=== PATIENT | female | born 1940 | race Caucasian/White ===

== ENCOUNTER 2020-07-07 11:11 | Outpatient (REF) | payer OTHER, SELFPAY ==
--- NOTE | ~2020-07-07 | MM_ITS ---
EXAMINATION: MM SCREENING DIGITAL BREAST TOMOSYNTHESIS, BILATERAL CLINICAL INFORMATION: Screening. Asymptomatic. The lifetime risk of breast cancer based on the Tyrer-Cuzick Model is 3%. COMPARISON: Mammography: 07/05/2019, 06/29/2018, 06/19/2017 TECHNIQUE: Digital breast tomosynthesis is performed in both the craniocaudal and mediolateral oblique views along with computer-aided detection (CAD). Synthesized 2D images are generated from the tomosynthesis. FINDINGS: There are scattered areas of fibroglandular density (ACR BI-RADS breast composition Category b). There are no significant masses, abnormal calcifications, or other abnormalities. Again, there has low axillary node posterior 3:00 left breast and intramammary node posterior upper outer right breast. The skin contours are smooth. No significant changes. MM/MM tomosynthesis screening BI IMPRESSION: No mammographic evidence of malignancy. ASSESSMENT: BI-RADS 2: Benign RECOMMENDATION: Routine annual mammography screening. This patient's information was entered into a reminder system with a target due date for their next mammogram.
== END 2020-07-07 11:12 | disposition home or self-care (01) ==
LOC: HO.MAMMO 11:11
PROVIDERS: PCP Internal Medicine; Visit Provider Internal Medicine
DX: Z12.31 Encounter for screening mammogram for malignant neoplasm of breast (principal)
CPT/HCPCS: 77063; 77067

== ENCOUNTER 2021-01-21 10:00 | Outpatient (REF) | payer OTHER, SELFPAY ==
[2021-01-21 14:00] LABS: MANUAL DIFF FLAG NO
[2021-01-21 14:36] LABS: Alanine Aminotransferase 12 U/L (0-31); Albumin Level 4.2 g/dL (3.5-5.0); Alkaline Phosphatase 76 U/L (39-117); Anion Gap 11 (12-20); Aspartate Amino Transferase 17 U/L (5-31); Bilirubin Total 0.8 mg/dL (0.0-1.0); Blood Urea Nitrogen 14 mg/dL (9-16); Calcium 9.4 mg/dL (8.4-10.2); Carbon Dioxide 24 mmol/L (22-29); Chloride 108 mmol/L (96-108); Cholesterol 237 mg/dL; Estimated Glomerular Filt Rate > 60; Glucose Fasting 89 mg/dL (60-99); HDL Cholesterol 72 mg/dL; LDL Cholesterol Calculated 146 mg/dl; Potassium 4.3 mmol/L (3.3-5.1); Sodium 139 mmol/L (135-145); Total Protein 6.2 g/dL (6.5-8.0); Triglycerides 96 mg/dL
[2021-01-21 14:40] LABS: Basophils Percent Auto 0.3 % (0-2); Eosinophils Absolute Auto 0.3 X10*3/uL (0.0-0.4); Eosinophils Percent Auto 5.1 % (0-4); Hematocrit 40.7 % (37-47); Hemoglobin 13.2 g/dl (12.0-16.0); Imm Gran Abs Auto 0.02 X10*3/uL (0.00-0.03); Imm Gran Pct Auto 0.3 % (0.0-0.4); Lymphocytes Absolute Auto 1.9 X10*3/uL (1.2-4.9); Lymphocytes Percent Auto 29.9 % (20-40); Mean Corpuscular HGB Conc 32.4 g/dl (31.0-35.0); Mean Corpuscular Volume 92.5 fL (80-98); Monocytes Absolute Auto 0.6 X10*3/uL (0.1-1.2); Monocytes Percent Auto 10.2 % (2-11); Neutrophils Absolute Auto 3.4 X10*3/uL (2.0-8.3); Neutrophils Percent Auto 54.2 % (45-73); Platelet Count 211 X10*3/uL (160-400); Red Cell Distribution Width 13.5 % (11.0-16.0); White Blood Count 6.3 X10*3/uL (4.8-10.8)
[2021-01-21 14:50] LABS: Vitamin D 25-OH Total 21.3 ng/mL (>30)
[2021-01-21 18:21] LABS: Thyroid Stimulating Hormone 0.89 uIU/mL (0.32-4.0)
== END 2021-01-21 10:01 | disposition home or self-care (01) ==
LOC: HO.10HDL 10:00
PROVIDERS: Visit Provider Internal Medicine
DX: I10 Essential (primary) hypertension (principal); E78.00 Pure hypercholesterolemia, unspecified; E66.09 Other obesity due to excess calories
CPT/HCPCS: 36415; 80053; 80061; 82306; 84443; 85025

== ENCOUNTER 2021-07-08 10:54 | Outpatient (REF) | payer OTHER, SELFPAY ==
--- NOTE | ~2021-07-08 | MM_ITS ---
EXAMINATION: MM SCREENING DIGITAL BREAST TOMOSYNTHESIS, BILATERAL CLINICAL INFORMATION: Screening. Asymptomatic. The lifetime risk of breast cancer based on the Tyrer-Cuzick Model is 2%. COMPARISON: Mammography: 07/15/2020, 07/05/2019, 06/29/2018 TECHNIQUE: Digital breast tomosynthesis is performed in both the craniocaudal and mediolateral oblique views along with computer-aided detection (CAD). Synthesized 2D images are generated from the tomosynthesis. FINDINGS: The breasts are almost entirely fatty (ACR BI-RADS breast composition Category a). Background stromal and fibroglandular densities are stable. No developing density or interval architectural abnormality. There are no significant masses, abnormal calcifications, or other abnormalities. No significant changes. MM/MM tomosynthesis screening BI IMPRESSION: No mammographic evidence of malignancy. ASSESSMENT: BI-RADS 1: Negative RECOMMENDATION: Routine annual mammography screening. This patient's information was entered into a reminder system with a target due date for their next mammogram.
== END 2021-07-08 10:55 | disposition home or self-care (01) ==
LOC: HO.MAMMO 10:54
PROVIDERS: PCP Internal Medicine; Visit Provider Internal Medicine
DX: Z12.31 Encounter for screening mammogram for malignant neoplasm of breast (principal)
CPT/HCPCS: 77063; 77067

== ENCOUNTER 2021-07-27 14:08 | Outpatient (REF) | payer OTHER, SELFPAY ==
--- NOTE | ~2021-07-27 | MR_ITS ---
EXAMINATION: MRI OF BRAIN WITHOUT CONTRAST. 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 Evaluate for small vessel disease. COMPARISON: No previous studies are available at this time for comparison and there are no prior reports. FINDINGS: Brain Volume: Mild generalized diffuse brain parenchymal volume loss noted. Structural: No malformations. Brain and Meninges: Small scattered patchy and punctate foci of FLAIR/T2 signal hyperintensity are noted within the subcortical and deeper white matter of both cerebral hemispheres, which are nonspecific findings but likely reflect chronic ischemic microangiopathy in a patient of this age. There is a 3 mm focus of susceptibility artifact in the left cerebellar hemisphere with stippled central T2 hyperintensity and a subtle thin rim of T2 hypointensity consistent with a small developmental cavernous venous malformation. No extra-axial fluid collections, space-occupying process, recent or acute hemorrhage or mass effect is identified. DWI sequence demonstrates no restricted diffusion. Specifically, there is no evidence for acute or subacute cerebral ischemia. Ventricles and Subarachnoid Spaces: The ventricular system and subarachnoid spaces are within normal limits without hydrocephalus. There is periventricular leukoaraiosis, which is an age-related phenomenon. Orbital Structures: Bilateral lens extractions are noted. Otherwise, the visualized orbital structures are grossly unremarkable within the limitations of the study. Vascular: Signal voids are noted in the visualized major intracranial vessels. Sinuses and Osseous Structures: Minor mucosal thickening in the ethmoid and maxillary sinuses is noted. Osseous marrow signal intensity appears within normal limits. Hyperostosis frontalis is noted which is an anatomic variant. Discogenic degenerative changes and spondylosis noted at C4-C5 with degenerative endplate changes. MR/MR head/brain wo con IMPRESSION: 1. Chronic ischemic microangiopathy in the white matter of both cerebral hemispheres with no evidence for acute or subacute cerebral ischemia, thalamic infarcts, space-occupying process or mass effect. 2. 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 3. Mild paranasal sinus mucosal inflammatory changes and degenerative changes at C4-C5.
== END 2021-07-27 14:09 | disposition home or self-care (01) ==
LOC: HO.MRI 14:08
PROVIDERS: Visit Provider Psychiatry & Neurology Neurology
DX: Z86.73 Personal history of transient ischemic attack (TIA), and cerebral infarction without residual deficits (principal)
CPT/HCPCS: 70551

== ENCOUNTER 2022-07-11 10:52 | Outpatient (REF) | payer OTHER, SELFPAY ==
--- NOTE | ~2022-07-11 | MM_ITS ---
EXAMINATION: MM SCREENING DIGITAL BREAST TOMOSYNTHESIS, BILATERAL CLINICAL INFORMATION: Screening. Asymptomatic. The lifetime risk of breast cancer based on the Tyrer-Cuzick Model is 2%. COMPARISON: Mammography: 07/08/2021, 07/07/2020, 07/05/2019 TECHNIQUE: Digital breast tomosynthesis is performed in both the craniocaudal and mediolateral oblique views along with computer-aided detection (CAD). Synthesized 2D images are generated from the tomosynthesis. Additional bilateral MLO views are provided. FINDINGS: There are scattered areas of fibroglandular density (ACR BI-RADS breast composition Category b). There are no significant masses, abnormal calcifications, or other abnormalities. No architectural abnormality or developing density or significant change from prior studies. The axilla and skin contours are unremarkable. MM/MM tomosynthesis screening BI IMPRESSION: No mammographic evidence of malignancy. ASSESSMENT: BI-RADS 1: Negative RECOMMENDATION: Routine annual mammography screening. This patient's information was entered into a reminder system with a target due date for their next mammogram.
== END 2022-07-11 10:53 | disposition home or self-care (01) ==
LOC: HO.MAMMO 10:52
PROVIDERS: Visit Provider Internal Medicine
DX: Z12.31 Encounter for screening mammogram for malignant neoplasm of breast (principal)
CPT/HCPCS: 77063; 77067

== ENCOUNTER 2022-12-01 08:01 | Outpatient (REF) | payer OTHER, SELFPAY ==
[2022-12-01 10:49] LABS: MANUAL DIFF FLAG NO
[2022-12-01 10:55] LABS: Basophils Percent Auto 0.5 % (0-2); Eosinophils Absolute Auto 0.3 X10*3/uL (0.0-0.4); Hemoglobin 14.1 g/dl (12.0-16.0); Imm Gran Abs Auto 0.01 X10*3/uL (0.00-0.03); Imm Gran Pct Auto 0.2 % (0.0-0.4); Lymphocytes Absolute Auto 2.1 X10*3/uL (1.2-4.9); Lymphocytes Percent Auto 32.6 % (20-40); Mean Corpuscular HGB Conc 32.8 g/dl (31.0-35.0); Mean Corpuscular Hemoglobin 30.4 pg (27.0-33.0); Mean Corpuscular Volume 92.7 fL (80.0-98.0); Mean Platelet Volume 11.7 fL (9.4-12.3); Monocytes Absolute Auto 0.6 X10*3/uL (0.1-1.2); Monocytes Percent Auto 10.1 % (2-11); Neutrophils Absolute Auto 3.3 x10*3/uL (2.0-8.3); Neutrophils Percent Auto 52.6 % (45-73); Platelet Count 229 X10*3/uL (160-400); Red Blood Count 4.64 X10*6/uL (4.20-5.50); Red Cell Distribution Width 13.5 % (11.0-16.0); White Blood Count 6.3 X10*3/uL (4.8-10.8)
[2022-12-01 11:13] LABS: Alanine Aminotransferase 13 U/L (0-31); Albumin Level 4.4 g/dL (3.5-5.0); Alkaline Phosphatase 72 U/L (39-117); Anion Gap 16 (12-20); Aspartate Amino Transferase 19 U/L (5-31); Bilirubin Total 0.5 mg/dL (0.0-1.0); Blood Urea Nitrogen 15 mg/dL (9-16); Calcium 10.1 mg/dL (8.4-10.2); Carbon Dioxide 19 mmol/L (22-29); Chloride 106 mmol/L (96-108); Cholesterol 231 mg/dL; Estimated Glomerular Filt Rate > 60; Glucose Fasting 101 mg/dL (60-99); HDL Cholesterol 68 mg/dL; LDL Cholesterol Calculated 143 mg/dl; Potassium 4.4 mmol/L (3.3-5.1); Sodium 137 mmol/L (135-145); Total Protein 6.7 g/dL (6.5-8.0); Triglycerides 103 mg/dL
[2022-12-01 11:31] LABS: Thyroid Stimulating Hormone 1.46 uIU/mL (0.32-4.0); Vitamin D 25-OH Total 46.8 ng/mL (>30)
== END 2022-12-01 08:02 | disposition home or self-care (01) ==
LOC: HO.10HDL 08:01
PROVIDERS: Visit Provider Internal Medicine
DX: I10 Essential (primary) hypertension (principal); E78.00 Pure hypercholesterolemia, unspecified; E66.09 Other obesity due to excess calories; G25.0 Essential tremor; E55.9 Vitamin D deficiency, unspecified
CPT/HCPCS: 36415; 80053; 80061; 82306; 84443; 85025

== ENCOUNTER 2023-07-13 11:00 | Outpatient (REF) | payer OTHER, SELFPAY | END 2023-07-13 11:01 | disposition home or self-care (01) | LOC: HO.MAMMO 11:00 | PROVIDERS: PCP Internal Medicine; Visit Provider Internal Medicine | DX: Z12.31 Encounter for screening mammogram for malignant neoplasm of breast (principal) | CPT/HCPCS: 77063; 77067 ==

== ENCOUNTER → 2023-07-13 11:15 | Outpatient (BNV) | payer OTHER, SELFPAY | PROVIDERS: PCP Internal Medicine; Visit Provider Radiology Diagnostic Radiology | DX: Z12.31 Encounter for screening mammogram for malignant neoplasm of breast (principal) | CPT/HCPCS: 77063; 77067 ==

== ENCOUNTER 2024-02-22 09:12 | Outpatient (REF) | payer OTHER, SELFPAY ==
[2024-02-22 10:55] LABS: MANUAL DIFF FLAG NO
[2024-02-22 11:00] LABS: Basophils Percent Auto 0.3 % (0-2); Eosinophils Absolute Auto 0.2 X10*3/uL (0.0-0.4); Eosinophils Percent Auto 3.8 % (0-4); Hematocrit 43.2 % (37.0-47.0); Hemoglobin 14.3 g/dl (12.0-16.0); Imm Gran Abs Auto 0.01 X10*3/uL (0.00-0.03); Imm Gran Pct Auto 0.2 % (0.0-0.4); Lymphocytes Absolute Auto 1.6 X10*3/uL (1.2-4.9); Lymphocytes Percent Auto 25.6 % (20-40); Mean Corpuscular HGB Conc 33.1 g/dl (31.0-35.0); Mean Corpuscular Hemoglobin 31.1 pg (27.0-33.0); Mean Corpuscular Volume 93.9 fL (80.0-98.0); Monocytes Absolute Auto 0.7 X10*3/uL (0.1-1.2); Monocytes Percent Auto 10.6 % (2-11); Neutrophils Absolute Auto 3.7 x10*3/uL (2.0-8.3); Neutrophils Percent Auto 59.5 % (45-73); Platelet Count 202 X10*3/uL (160-400); Red Cell Distribution Width 13.4 % (11.0-16.0); White Blood Count 6.3 X10*3/uL (4.8-10.8)
[2024-02-22 11:30] LABS: Alanine Aminotransferase 14 U/L (0-31); Albumin Level 4.3 g/dL (3.5-5.0); Alkaline Phosphatase 76 U/L (39-117); Anion Gap 12 (12-20); Aspartate Amino Transferase 20 U/L (5-31); Bilirubin Total 0.4 mg/dL (0.0-1.0); Blood Urea Nitrogen 17 mg/dL (9-16); Calcium 10.3 mg/dL (8.4-10.2); Carbon Dioxide 26 mmol/L (22-29); Chloride 107 mmol/L (96-108); Cholesterol 250 mg/dL (<200); Estimated Glomerular Filt Rate > 60; Glucose Fasting 103 mg/dL (60-99); HDL Cholesterol 74 mg/dL (>40); LDL Cholesterol Calculated 154 mg/dL (<100); Potassium 4.3 mmol/L (3.3-5.1); Sodium 141 mmol/L (135-145); Total Protein 6.7 g/dL (6.5-8.0); Triglycerides 113 mg/dL (<150)
[2024-02-22 11:32] LABS: Thyroid Stimulating Hormone 1.13 uIU/mL (0.32-4.0)
== END 2024-02-22 09:13 | disposition home or self-care (01) ==
LOC: HO.10HDL 09:12
PROVIDERS: Visit Provider Internal Medicine
DX: I10 Essential (primary) hypertension (principal); E78.00 Pure hypercholesterolemia, unspecified; E66.09 Other obesity due to excess calories; G25.0 Essential tremor
CPT/HCPCS: 36415; 80053; 80061; 84443; 85025

== ENCOUNTER 2024-04-02 12:07 | Outpatient (REF) | payer OTHER, SELFPAY | END 2024-04-02 12:08 | disposition home or self-care (01) | LOC: HO.HOSX 12:07 | PROVIDERS: Visit Provider Physician Assistant | DX: M25.511 Pain in right shoulder (principal) | CPT/HCPCS: 73030 ==

== ENCOUNTER 2024-04-02 12:55 | Outpatient (AMB) | payer OTHER, SELFPAY ==
--- NOTE | 2024-04-02 13:09 | A.OFFVIS_ITS ---
Intake Visit Reasons: New Pt - Right Shoulder Pain - ?Bicep tear Intake Note: Gloria an 83 year old right hand dominant female who presents today for an evaluation of right shoulder pain. Patient reports that she was lifting a heavy bag of dog food many years ago and heard a snap in the arm. She currently has no pain but feels that her bicep has migrated distally. Allergies aspirin [ASPIRIN] Allergy (Unknown, Unverified 06/15/23 12:39) ANAPHYLAXIS, hives cefaclor Allergy (Unknown, Verified 06/15/23 12:39) anaphylaxis cephalexin Allergy (Unknown, Verified 06/15/23 12:39) anaphylaxis Cephalosporins [CEPHALOSPORINS] Allergy (Unknown, Unverified 06/15/23 12:39) DIFFICULTY BREATHING erythromycin base [ERYTHROMYCIN BASE] Allergy (Unknown, Unverified 06/15/23 12:39) ANAPHYLAXIS ibuprofen [From MOTRIN] Allergy (Unknown, Unverified 06/15/23 12:39) HIVES Iodinated Contrast Media [IV DYE, IODINE CONTAINING] Allergy (Unknown, Unverified 06/15/23 12:39) ANAPHYLAXIS ketoconazole [KETOCONAZOLE] Allergy (Unknown, Unverified 06/15/23 12:39) ANAPHYLAXIS Penicillins [PENICILLINS] Allergy (Unknown, Unverified 06/15/23 12:39) ANAPHYLAXIS ranitidine [Zantac] Allergy (Unknown, Verified 06/15/23 12:39) hives simvastatin [From ZOCOR] Allergy (Unknown, Unverified 06/15/23 12:39) ANAPHYLAXIS asa Allergy (Unknown, Uncoded 06/15/23 12:39) Cephalexin Allergy (Unknown, Uncoded 06/15/23 12:39) Dye LONG-TERM Blue 1 Allergy (Unknown, Uncoded 06/15/23 12:39) Environmental Allergies Allergy (Unknown, Uncoded 06/15/23 12:39) From CEFOTAN Allergy (Unknown, Uncoded 06/15/23 12:39) ANAPHYLAXIS From ZANTAC Allergy (Unknown, Uncoded 06/15/23 12:39) ANAPHYLAXIS Insect bites ( Spiders and Bee Allergy (Unknown, Uncoded 06/15/23 12:39) Ketoconazole Allergy (Unknown, Uncoded 06/15/23 12:39) Motrin Allergy (Unknown, Uncoded 06/15/23 12:39) hives motrin Allergy (Unknown, Uncoded 06/15/23 12:39) Patients states that she is Al Allergy (Unknown, Uncoded 06/15/23 12:39) Penicillin Allergy (Unknown, Uncoded 06/15/23 12:39) Zocor Allergy (Unknown, Uncoded 06/15/23 12:39) myalgias HPI HPI New Pt - Right Shoulder Pain - ?Bicep tear: Details: 83-year-old right hand dominant female who presents to the office today for an evaluation of right shoulder pain. She reports she was lifting a heavy bag of dog food many months ago and heard a snap in the arm. She currently states she has no pain however she feels that her bicep has migrated distally. [facility] Surgical History History of breast biopsy History of tonsillectomy Hx of cataract surgery Hx of wisdom tooth extraction History of partial hysterectomy Hx of arthroscopy of left knee Hx of appendectomy Review of Systems Const All systems reviewed & are unremarkable except as noted in HPI and below Physical Exam Const General: cooperative, healthy appearing, comfortable, no acute distress, well developed and alert Orientation/consciousness: patient oriented x3 HEENT Head: Yes normal to inspection, Yes normocephalic and Yes atraumatic Eyes General: appearance normal, both eyes and all related structures Resp Effort & Inspection: normal respiratory effort and able to speak in complete sentences Cardio Rate: regular rate Peripheral pulses: Peripheral pulses 2+ throughout GI Palpation (GI): Soft to palpation Skin Lesions: no lesions Rashes: no rashes Neuro General: patient oriented x3 Extrem Other: Right shoulder: Normal to inspection. She does have a defect over the proximal bicep tendon with bulging of muscle. No tenderness over the proximal bicep. No pain with supination or pronation. Full ROM. NVI. Results Reviewed Results Reviewed: Xrays were obtained in the office today and personally reviewed by me of the right shoulder show mild ghj oa Assessment & Plan Assessment & Plan (1) Rupture of right proximal biceps tendon: Code(s): S46.211A - Strain of muscle, fascia and tendon of other parts of biceps, right arm, initial encounter Category: Medical Plan In the absence of pain, she will continue with activities as tolerated. If symptoms persist or worsens, patient will contact the office, otherwise follow- up as needed. Orders: Orders XR shoulder RT min 2V Today M25.511 - Pain in right shoulder Patient Instructions: Scribed for Gregorio Benson PA-C, by Segun Booker medical microbiologist, on 04/02/2024 at 1:00 PM EST.? I, Gregorio Benson PA-C, have personally reviewed and agree with the information entered by the scribe. Coding Level of Care Code New Pt Level 3 (70005) Complex EM visit Add On G2211 Diagnoses Rupture of right proximal biceps tendon S46.211A
== END 2024-04-02 13:39 | disposition home or self-care (01) ==
PROVIDERS: PCP Internal Medicine; Visit Provider Physician Assistant
DX: S46.211A Strain of muscle, fascia and tendon of other parts of biceps, right arm, initial encounter (principal)
CPT/HCPCS: 99203

== ENCOUNTER 2024-04-05 09:32 | Outpatient (REF) | payer OTHER, SELFPAY ==
--- NOTE | ~2024-04-05 | XR_ITS ---
EXAMINATION: XR HIP LEFT WITH PELVIS CLINICAL INFORMATION: Pain. COMPARISON: CT Abdomen pelvis without contrast 11/10/2016 TECHNIQUE: Three views of the left hip. FINDINGS: No fracture. Alignment is anatomic. Hip joint space is moderately narrowed with mild spurring. Soft tissues are unremarkable. XR/XR hip LT w PEL1V IMPRESSION: Moderate degenerative change in the left hip. Electronically signed by: William Taveras MD 04/30/2024 10:22 AM [facility]
--- NOTE | ~2024-04-05 | XR_ITS ---
EXAMINATION: XR LUMBOSACRAL SPINE CLINICAL INFORMATION: PAIN COMPARISON: None available. TECHNIQUE: Three views of the lumbosacral spine. FINDINGS: Very mild S shaped scoliosis. No fracture or destructive process. Disc space narrowing with minor spondylitic change is seen in the lower thoracic and upper lumbar spine. There is moderate to advanced disc space narrowing and facet degenerative change at the lumbosacral junction. XR/XR lumbar spine 2-3V IMPRESSION: No fracture. No acute findings. Electronically signed by: Howard Polanco MD 04/17/2024 09:27 AM [facility]
== END 2024-04-05 09:33 | disposition home or self-care (01) ==
LOC: HO.XRAY 09:32
PROVIDERS: PCP Internal Medicine; Visit Provider Internal Medicine
DX: M54.9 Dorsalgia, unspecified (principal)
CPT/HCPCS: 72040; 72070; 72100; 72200; 73502

== ENCOUNTER 2024-07-18 10:50 | Outpatient (REF) | payer OTHER, SELFPAY ==
--- OUTSIDE RECORDS SUMMARY | 2024-07-18 13:48 | XMS_ITS | Patient Health Record ---
Author Organization [facility] Address [address] [place] [id number] Care Team Providers Care Tool Tender Name Role Phone Tia (RETIRED) William ANDERSON Primary Care Provid er Unavailable Minesh Michelle Jr Unavailable [phone] Allergies Allergen (clinical drug ingredient) Drug/Non Drug Allergy documented on EMR Reaction Allergy Type Onset Date Status Medicinal cephalosporin and acting as antibacterial agent (FN) Cephalosporins Unknown Drug Allergy Active Motrin Unknown Drug Allergy Active ibuprofen Ibuprofen Unknown Drug Allergy Active erythromycin Erythromycin Unknown Drug Allergy A ctive ibuprofen Advil Unknown Drug Allergy Active ivp dye (uncoded) Unknown Allergy Ac tive ketoconazole Ketoconazole (uncoded) Unknown Allergy Active erythromycin Erythromycin (uncoded) Unknown Allergy Active aspirin Aspirin (uncoded) Unknown Allergy Ac tive simvastatin Zocor (uncoded) Unknown Allergy Ac tive Zantac (uncoded) Unknown Allergy Act axel Penicillin (uncoded) Unknown Allergy Active cefotetan Cefotetan (uncoded) Unknown Allergy Active cefaclor Cefaclor Unknown Drug Allergy Active Reason For Referral No Information Medications Medication SIG (Take, Route, Fr equency, Duration) Notes Start Date End Date Status tylenol Active Zetia 10 MG 1 tablet Orally Once a day Active Lisinopril 20 MG 1 tablet Orally Once a day Active Vitamin D Active Primidone 50 MG Orally Acti ve Immunizations Vaccine Route Administration Date Status Comme nts Influenza Unknown 02/05/2019 Administered Social History Tobacco Use: Social History Observation Description Date Details (start date - stop date) Former Smoker NA - NA Tobacco Use/Smoking Question Answer Notes Patient is a former smoker When did you stop smoking? 50 years ago How long has it been since you last smoked? > 10 years Alcohol Screen Question Answer Notes Did you have a drink contain ing alcohol in the past year? Yes How often did you have a dri nk containing alcohol in the past year? Monthly or less (1 point) How many drinks did you have on a typical day when you were drinking in the past year? 1 or 2 drinks (0 point) How often did you have 6 or more drinks on one occasion in the past year? Never (0 point) Points 1 Interpretation Negative Problems Problem Type SNOMED Code ICD Code Onset Dates Problem Status W/U Status Risk Notes Problem 376621867 Colon cancer screening (Z12.11) Active confirmed Problem 005204804 Personal history of colonic polyps (Z86.010) Active confirmed Problem 593265412 Encounter for ot her preprocedural examination (Z01.818) Active confirmed Problem 877753162 Diverticulosis (K57.90) Active confirmed Plan Of Treatment Future Test Test Name Order Date COLONOSCOPY 07/23/2014 COLONOSCOPY 10/02/2019 COLONOSCOPY 09/08/2022 Insurance Providers Payer Name Payer Address Payer Phone Subscriber Number Group Number Insured Name Patient Relationship to Insured Coverage Start Date Coverage End Date [employer] [address] [place] [address] [id number] KIMBERLY ISAACS Self - patient is the insured Medical (General) History Medical History History ICD Code 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
== END 2024-07-18 10:51 | disposition home or self-care (01) ==
LOC: HO.MAMMO 10:50
PROVIDERS: PCP Physician Assistant Medical; Visit Provider Internal Medicine
DX: Z12.31 Encounter for screening mammogram for malignant neoplasm of breast (principal)
CPT/HCPCS: 77063; 77067

== ENCOUNTER → 2024-07-18 11:00 | Outpatient (BNV) | payer OTHER, SELFPAY | PROVIDERS: PCP Physician Assistant Medical; Visit Provider Internal Medicine | DX: Z12.31 Encounter for screening mammogram for malignant neoplasm of breast (principal) | CPT/HCPCS: 77063; 77067 ==

== ENCOUNTER 2024-08-21 10:38 | Outpatient (REF) | payer OTHER, SELFPAY ==
[2024-08-21 14:20] LABS: Parathyroid Hormone Intact 36.6 pg/mL (8.7-77.1)
[2024-08-21 14:38] LABS: Alanine Aminotransferase 18 U/L (0-31); Albumin Level 4.3 g/dL (3.5-5.0); Alkaline Phosphatase 88 U/L (39-117); Anion Gap 12 (12-20); Aspartate Amino Transferase 26 U/L (5-31); Bilirubin Total 0.4 mg/dL (0.0-1.0); Blood Urea Nitrogen 19 mg/dL (9-16); Calcium 10.1 mg/dL (8.4-10.2); Carbon Dioxide 22 mmol/L (22-29); Chloride 110 mmol/L (96-108); Cholesterol 239 mg/dL (<200); Estimated Glomerular Filt Rate > 60; Glucose Fasting 101 mg/dL (60-99); HDL Cholesterol 76 mg/dL (>40); LDL Cholesterol Calculated 146 mg/dL (<100); Potassium 4.3 mmol/L (3.3-5.1); Sodium 140 mmol/L (135-145); Total Protein 6.6 g/dL (6.5-8.0); Triglycerides 87 mg/dL (<150)
== END 2024-08-21 10:39 | disposition home or self-care (01) ==
LOC: HO.10HDL 10:38
PROVIDERS: Visit Provider Internal Medicine
DX: I10 Essential (primary) hypertension (principal); E78.00 Pure hypercholesterolemia, unspecified; G25.0 Essential tremor; S46.211D Strain of muscle, fascia and tendon of other parts of biceps, right arm, subsequent encounter; E66.09 Other obesity due to excess calories
CPT/HCPCS: 36415; 80053; 80061; 83970

== ENCOUNTER 2024-08-28 11:17 | Outpatient (AMB) | payer OTHER, SELFPAY ==
--- NOTE | 2024-08-28 11:18 | MHC.PC.OV ---
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 Required: No Accompanied by: Self / Same As Patient Allergies aspirin [ASPIRIN] Allergy (Unknown, Unverified 08/28/24 12:27) ANAPHYLAXIS, hives cefaclor Allergy (Unknown, Verified 08/28/24 12:27) anaphylaxis cephalexin Allergy (Unknown, Verified 08/28/24 12:27) anaphylaxis Cephalosporins [CEPHALOSPORINS] Allergy (Unknown, Unverified 08/28/24 12:27) DIFFICULTY BREATHING erythromycin base [ERYTHROMYCIN BASE] Allergy (Unknown, Unverified 08/28/24 12:27) ANAPHYLAXIS ibuprofen [From MOTRIN] Allergy (Unknown, Unverified 08/28/24 12:27) HIVES Iodinated Contrast Media [IV DYE, IODINE CONTAINING] Allergy (Unknown, Unverified 08/28/24 12:27) ANAPHYLAXIS ketoconazole [KETOCONAZOLE] Allergy (Unknown, Unverified 08/28/24 12:27) ANAPHYLAXIS Penicillins [PENICILLINS] Allergy (Unknown, Unverified 08/28/24 12:27) ANAPHYLAXIS ranitidine [Zantac] Allergy (Unknown, Verified 08/28/24 12:27) hives simvastatin [From ZOCOR] Allergy (Unknown, Unverified 08/28/24 12:27) ANAPHYLAXIS asa Allergy (Mild, Uncoded 08/28/24 12:27) Unknown Cephalexin Allergy (Mild, Uncoded 08/28/24 12:27) Unknown Dye P[facility]ENT[facility] Blue 1 Allergy (Unknown, Uncoded 08/28/24 12:27) Unknown Environmental Allergies Allergy (Unknown, Uncoded 08/28/24 12:27) Unknown From CEFOTAN Allergy (Unknown, Uncoded 08/28/24 12:27) ANAPHYLAXIS From ZANTAC Allergy (Unknown, Uncoded 08/28/24 12:27) ANAPHYLAXIS Insect bites ( Spiders and Bee Allergy (Unknown, Uncoded 08/28/24 12:27) Unknown Ketoconazole Allergy (Unknown, Uncoded 08/28/24 12:27) Unknown Motrin Allergy (Unknown, Uncoded 08/28/24 12:27) hives motrin Allergy (Unknown, Uncoded 08/28/24 12:27) Unknown Patients states that she is Al Allergy (Unknown, Uncoded 08/28/24 12:27) Unknown Penicillin Allergy (Unknown, Uncoded 08/28/24 12:27) Unknown Zocor Allergy (Unknown, Uncoded 08/28/24 12:27) myalgias Medication List - Last Reconciled 08/28/24 by Carol Aguilar PA-C cholecalciferol (vitamin D3) 25 mcg PO DAILY ezetimibe 10 mg PO DAILY lisinopril 20 mg PO DAILY primidone 50 mg PO BID timolol maleate 0.5% drps ophthalmic (eye) Tobacco use date assessed: 08/28/24 Fall risk assessment: 2 + Falls in past year Last assessed Fall Risk: 08/28/24 Dental Screening Dental Screen Date: 08/28/24 Did you have a dental visit in the last 12 months?: Yes Did you have a dental problem in the last 6 months where you did not have access to dental care?: No Was dental information given to patient?: Patient has dentist HPI 6 month follow up HPI Details The patient is an 83-year-old female presenting for a six-month follow-up and evaluation of left shoulder pain post-fall. The fall, occurring 3 to 4 weeks ago, has exacerbated existing neck and shoulder pain, which she has been managing through physical therapy. Previous examination by Dr. Restrepo and discretionary imaging did not result in diagnosis changes. Her medical history includes management of essential hypertension with lisinopril, and hypercholesterolemia with Zetia. Additionally, an essential tremor is managed with Primidone. Glaucoma management is achieved using Timolol eye drops. She continues vitamin D supplementation for deficiency. Her cholesterol levels have shown improvement since February, with significant points drop in both total and LDL cholesterol. Despite previous indications of benign polyps, a colonoscopy is currently not recommended. The patient remains non-diabetic, confirmed with a recent hemoglobin A1c test. Concerns about bone health prompted discussions regarding DEXA scanning, though the patient expresses reluctance due to physical exam discomfort. Social history - Functional status: Engages in physical therapy for neck, shoulder, and body pain management. - Exercise: Reports a history of physical discomfort impeding activity. - Nutritional Intake: Mentions sensitivity to salt intake causing swelling. - Substance Use: Denies any smoking. [facility] Medical History (Updated 08/28/24 @ 12:32 by Carol Aguilar PA-C) Vitamin D deficiency Class 2 obesity with body mass index (BMI) of 37.0 to 37.9 in adult Glaucoma History of diverticulitis Environmental allergies Tubular adenoma Lumbar spondylosis Tremor of right hand Pure hypercholesterolemia, unspecified Establishing care with new doctor, encounter for Hypertension Neck pain History of recent fall Injury of left shoulder History of mammogram (~07/18/24) Surgical History (Updated 08/28/24 @ 12:10 by Carol Aguilar PA-C) History of colonoscopy (~09/24/14) History of breast biopsy History of tonsillectomy Hx of cataract surgery Hx of wisdom tooth extraction History of partial hysterectomy Hx of arthroscopy of left knee Hx of appendectomy Family History (Updated 08/28/24 @ 11:21 by NARCISA Bradley) Father No problems noted. Mother No problems noted. Social History (Updated 08/28/24 @ 11:32 by NARCISA Bradley) Housing: House Alcohol intake: current Alcohol intake frequency: holidays/special occasions only Patient Tobacco Use Status: Former Tobacco user service: No Current occupational status: retired Cognitive needs: No Hearing needs: No Vision needs: Yes (reading glasses) Questionnaire PHQ-9 Over the last 2 weeks, how often have you been bothered by any of the following problems? 1. Little interest or pleasure in doing things: not at all 2. Feeling down, depressed, or hopeless: not at all 3. Trouble falling or staying asleep, or sleeping too much: not at all 4. Feeling tired or having little energy: not at all 5. Poor appetite or overeating: not at all 6. Feeling bad about yourself - or that you are a failure or have let yourself or your family down: not at all 7. Trouble concentrating on things, such as reading the newspaper or watching television: not at all 8. Moving or speaking so slowly that other people could have noticed. Or the opposite - being so fidgety or restless that you have been moving around a lot more than usual: not at all 9. Thoughts that you would be better off or of hurting yourself in some way: not at all Total score: 0 Depression Screening Interpretation: Negative Depression Screening Done: Yes 33052 - PHQ-9 Billing: Yes Source: Developed by Drs. William Bach, Michelle Reeves, Christiano Pereira and colleagues, with an educational lucina from [employer]. Thrive Questionnaire Date Thrive assessed: 08/28/24 I am a: Patient What is your living situation today?: I have a steady place to live Within the past 12 months, did the food you bought not last and you didn't have the money to get more?: Never true Within the past 12 months, did you worry whether your food would run out before you got money to buy more?: Never true Do you have trouble paying for medicines?: No Do you have trouble getting transportation to medical appointments?: No Do you have trouble paying your heating and electricity bill?: No Do you have trouble taking care of your child, family member or friend?: No Do you have trouble with day-to-day activities such as bathing, preparing meals, shopping, managing finances, etc.?: No Are you currently unemployed and looking for a job?: No Are you interested in more education?: No Please select the resources that you would like help with: None THRIVE Score: 0 AUDIT C Alcohol Use Questionnaire (AUDIT-C) 1. How often do you have a drink containing alcohol?: Monthly or less 2. How many drinks containing alcohol do you have on a typical day when you are drinking?: 1 or 2 3. How often do you have six or more drinks on one occasion?: Never Total Score: 1 Score Reviewed/Action Taken: No BRIAN-7 AMB Questionnaire BRIAN-7 Date BRIAN - 7 assessed: 08/28/24 Feeling nervous, anxious, or on edge: 0 = Not at all Not being able to stop or control worryin = Not at all Worrying too much about different things: 0 = Not at all Trouble relaxin = Not at all Being so restless that it is hard to sit still: 0 = Not at all Becoming easily annoyed or irritable: 0 = Not at all Feeling afraid as if something awful might happen: 0 = Not at all Total BRIAN-7 score (0-4 normal; 5-9 mild; 10-14 moderate; 15-21 severe): 0 Source: Developed by Drs. William LMichelle Mcmahan Kurt Kroenke and colleagues, with an educational lucina from [employer]. BRIAN-7 Assessment Billing BRIAN-7 Assessment Tool: BRIAN-7 Assessment 31560 Review of Systems Const Details: - Cardiovascular: Reports hypertension management. - Respiratory: Denies shortness of breath or chest pain. - Endocrine: Denies recent issues with diabetes management. - Musculoskeletal: Reports neck and left shoulder pain after recent falls; attending physical therapy. - Neurologic: Reports essential tremor. - Ophthalmologic: Reports use of Timolol for glaucoma; denies vision changes. - Gastrointestinal: Denies recent changes in bowel habits; declines colonoscopy. - Genitourinary: Denies changes in urinary function. - Dermatologic: No symptoms discussed. - Hematologic/Lymphatic: Denies history of anemia or abnormal blood counts. - Mental Health: Denies anxiety or depression medication directly. - General: Reports difficulty hearing and chronic symptoms. Physical exam (Primary Care) Vital Signs: Last Vital Signs Temp 98.0 F 08/28/24 11:22 Pulse 62 08/28/24 11:22 Resp 14 08/28/24 11:22 BP 136/80 08/28/24 11:22 Pulse Ox 98 08/28/24 11:22 Oxygen Delivery Method Room Air 08/28/24 11:22 Care Plan Goal for BP management: <130/90 at Goal BMI result Body Mass Index 37.1 BMI Assessment/Plan discussion: High BMI High, discussed plan: lifestyle, weight reduction, dietary, physical activity and alcohol moderation Tobacco/Smoking Status: Tobacco use Status Tobacco use date assessed 08/28/24 08/28/24 11:35 Patient Tobacco Use Status Former Tobacco user 08/28/24 11:35 PHQ-9: PHQ-9 Score PHQ-9: Total score 0 08/28/24 12:11 Depression Screening Interpretation: Negative Thrive Assessment: Date of Thrive Assessment Date Thrive assessed 08/28/24 08/28/24 11:35 Const Other: Appearance: Alert. Oriented X3. No acute distress. Head: Normal external exam. Normocephalic. Atraumatic. Eyes: Pupils are equal, round, and reactive to light. Extraocular movements intact. Conjunctiva and sclera normal. Eyelids normal. Ears: External auditory canal normal. Tympanic membranes normal. Throat: Pharynx normal. Uvula midline. Moist mucous membranes. Neck: Normal inspection. Neck supple. Full range of motion. No adenopathy. Thyroid Normal. No meningeal signs. No neck mass noted. Cardiovascular: Normal heart rate and rhythm. Heart sound normal. No murmurs noted. Pulses normal throughout. Respiratory: No respiratory distress. Painless inspiration. Breath sounds normal. No wheezes/rales/rhonchi noted. Chest nontender. No accessory muscle usage noted or decreased air movement noted. Abdomen: Soft and nontender. Bowel sounds normal in all 4 quadrants. No distention noted. No organomegaly noted. No visible injury noted. Back: No costovertebral angle tenderness. Full range of motion noted. Skin: Skin warm and dry. Normal skin color. Normal skin turgor. No rashes/lesions/lacerations noted. Extremities: No lower extremity edema. Patient with tenderness to palpation to left shoulder/scapula and left cervical spine. No mid cervical tenderness step-offs or deformities. Patient has good range of motion of left shoulder. No obvious deformities are noted. No extremity edema noted to left upper extremity or any extremities. Otherwise all other extremities exhibit normal range of motion nontender at this time. Neuro: Oriented X 3. No motor deficit. No sensory deficit. Reflexes normal. Results AMB Hemoglobin A1c AMB Hemoglobin A1c 5.4 % Last Edit by NARCISA Bradley on 08/28/24 12:00 Results Reviewed Results Reviewed: Laboratory Last Values Hgb A1c (Clinic) 5.4 % (4.0-6.0) 08/28/24 11:57 - Labs: Cholesterol levels improved from 250 to 239. LDL cholesterol reduced from 154 to 146. Hemoglobin A1c at 5.4 (non-diabetic range). - Imaging: No imaging results explicitly noted from this visit. Coding Level of Care Code New Pt Level 4 (93520) Complex EM visit Add On G2211 Diagnoses Establishing care with new doctor, encounter for Z76.89 Injury of left shoulder S49.92XA History of recent fall Z91.81 Neck pain M54.2 Hypertension I10 Glaucoma H40.9 Tremor of right hand R25.1 Class 2 obesity with body mass index (BMI) of 37.0 to 37.9 in adult E66.812; Z68.37 Pure hypercholesterolemia, unspecified E78.00 Vitamin D deficiency E55.9 Additional Codes BRIAN-7 Assessment Billing - BRIAN-7 Assessment Tool: BRIAN-7 Assessment 94296 ([id number]) PHQ-9 - 22896 - PHQ-9 Billing: Yes ([id number]) Assessment & Plan Assessment & Plan (1) Establishing care with new doctor, encounter for: Code(s): Z76.89 - Persons encountering health services in other specified circumstances Category: Medical (2) Injury of left shoulder: Code(s): S49.92XA - Unspecified injury of left shoulder and upper arm, initial encounter Category: Medical Plan: Conduct shoulder x-ray, consider orthopedic referral. Condition is new and stable will continue to monitor. (3) History of recent fall: Code(s): Z91.81 - History of falling Category: Medical Plan: Condition is stable will continue to monitor. (4) Neck pain: Code(s): M54.2 - Cervicalgia Category: Medical Plan: CT scan of cervical spine without contrast ordered at this time, orthopedic referral. Condition is new and stable will continue to monitor. (5) Hypertension: Code(s): I10 - Essential (primary) hypertension Category: Medical Plan: Continue Lisinopril. Monitor blood pressure regularly. Condition is chronic and stable continue to monitor. (6) Glaucoma: Code(s): H40.9 - Unspecified glaucoma Category: Medical Plan: Maintain Timolol eye drop regimen. Regular eye pressure monitoring recommended. Condition is chronic instead will continue to monitor. (7) Tremor of right hand: Code(s): R25.1 - Tremor, unspecified Category: Medical Plan: Continue Primidone. Check tremor severity periodically. Condition is chronic and stable continue to monitor. (8) Class 2 obesity with body mass index (BMI) of 37.0 to 37.9 in adult: Code(s): E66.812 - Obesity, class 2; Z68.37 - Body mass index [BMI] 37.0-37.9, adult Category: Medical (9) Pure hypercholesterolemia, unspecified: Code(s): E78.00 - Pure hypercholesterolemia, unspecified Category: Medical Plan: Continue Zetia. Arrange periodic lipid profile assessments. Condition is chronic and stable continue to monitor. (10) Vitamin D deficiency: Code(s): E55.9 - Vitamin D deficiency, unspecified Category: Medical Plan: Sustain vitamin D supplementation. Condition is chronic and stable continue to monitor. Plan Plan Patient was informed and verbally consented to the use of an ambient scribe for clinic note documentation during this visit. 1. Essential Hypertension Continue Lisinopril. Monitor blood pressure regularly. 2. Hypercholesterolemia Continue Zetia. Arrange periodic lipid profile assessments. 3. Essential Tremor Continue Primidone. Check tremor severity periodically. 4. Glaucoma Maintain Timolol eye drop regimen. Regular eye pressure monitoring recommended. 5. Vitamin D Deficiency Sustain vitamin D supplementation. 6. Left Shoulder Pain Post-Fall Conduct shoulder x-ray, consider orthopedic referral. We discussed the management of her multiple chronic conditions, focusing on maintaining current therapies and arranging follow-up evaluations. Regarding her left shoulder pain post-fall, I recommended an x-ray and possible referral to orthopedics should it persist or worsen. We also talked about her cholesterol improvement, and the continuation of current dosage of Zetia was agreed upon. I outlined the importance of monitoring her glucose levels to prevent the onset of diabetes. We addressed her recent blood results, which indicated improvement in her lipid profile and maintenance of a non-diabetic glucose level. The patient opted against a colonoscopy after consideration of age-related risks and prior discussions with her healthcare provider. I will continue to monitor her vitamin D levels due to ongoing supplementation and will re-evaluate her need for a bone scan versus discomfort during such exams. Orders: Orders Complete Blood Count Auto Diff Today Z00.00 - Encounter for general adult medical examination without abnormal findings Vitamin D 25-OH Total Today Z00.00 - Encounter for general adult medical examination without abnormal findings TSH reflex Free T4 Today Z00.00 - Encounter for general adult medical examination without abnormal findings Magnesium Today Z00.00 - Encounter for general adult medical examination without abnormal findings Erythrocyte Sedimentation Rate Today Z00.00 - Encounter for general adult medical examination without abnormal findings XR DEXA axial skeleton Today M81.0 - Age-related osteoporosis without current pathological fracture XR shoulder LT min 2V Today S49.92XA - Unspecified injury of left shoulder and upper arm, initial encounter, Z91.81 - History of falling C Reactive Protein Today Z00.00 - Encounter for general adult medical examination without abnormal findings Vitamin B12 and Folate Today Z00.00 - Encounter for general adult medical examination without abnormal findings Creatine Kinase Total Today Z00.00 - Encounter for general adult medical examination without abnormal findings AMB Hemoglobin A1c Today Z13.9 - Encounter for screening, unspecified CT cervical spine wo IV con Today M54.2 - Cervicalgia, S49.92XA - Unspecified injury of left shoulder and upper arm, initial encounter, Z91.81 - History of falling Referrals Orthopedics Referral S49.92XA - Unspecified injury of left shoulder and upper arm, initial encounter Patient Instructions: - Continue taking your prescribed medications, including Lisinopril, Zetia, and Primidone. - Schedule an x-ray for your left shoulder and expect a call for a CAT scan of your neck. - Monitor your blood pressure regularly. - Maintain your vitamin D supplements as prescribed. - Reduce salt intake to prevent swelling. - Attend regular eye check-ups for glaucoma. - Get your cholesterol checked as advised. - Schedule follow-up visits every four to six months.
[2024-08-28 11:22] VITALS: BP 136/80; PULSE 62; RESP 14; TEMP 36.7; O2SAT 98; BMI 37.1
== END 2024-08-28 12:04 | disposition home or self-care (01) ==
LOC: HO.HMCSH 11:17
PROVIDERS: PCP Physician Assistant Medical; Visit Provider Physician Assistant Medical
DX: Z76.89 Persons encountering health services in other specified circumstances (principal); S49.92XA Unspecified injury of left shoulder and upper arm, initial encounter; Z91.81 History of falling; M54.2 Cervicalgia; I10 Essential (primary) hypertension; H40.9 Unspecified glaucoma; R25.1 Tremor, unspecified; E66.812 Obesity, class 2; Z68.37 Body mass index [BMI] 37.0-37.9, adult; E78.00 Pure hypercholesterolemia, unspecified; E55.9 Vitamin D deficiency, unspecified; Z13.9 Encounter for screening, unspecified

== ENCOUNTER → 2024-08-28 11:17 | Outpatient (BNVA) | payer OTHER, SELFPAY | PROVIDERS: PCP Physician Assistant Medical; Visit Provider Physician Assistant Medical | DX: Z76.89 Persons encountering health services in other specified circumstances (principal); S49.92XA Unspecified injury of left shoulder and upper arm, initial encounter; M54.2 Cervicalgia; I10 Essential (primary) hypertension; H40.9 Unspecified glaucoma; R25.1 Tremor, unspecified; E66.812 Obesity, class 2; Z68.37 Body mass index [BMI] 37.0-37.9, adult; E78.00 Pure hypercholesterolemia, unspecified; E55.9 Vitamin D deficiency, unspecified; W19.XXXA Unspecified fall, initial encounter; Y93.9 Activity, unspecified; Y92.9 Unspecified place or not applicable; Y99.9 Unspecified external cause status; Z13.1 Encounter for screening for diabetes mellitus | CPT/HCPCS: 83036; 96127 ==

== ENCOUNTER 2024-10-17 11:15 | Outpatient (REF) | payer OTHER, SELFPAY ==
--- NOTE | ~2024-10-17 | MM_ITS ---
EXAMINATION: DXA BONE DENSITY AXIAL HISTORY: M81.0 - Age-related osteoporosis without current pathological fracture TECHNIQUE: DropThought Dual energy absorptiometry (DEXA) of the lumbar spine, total left hip, and femoral neck was performed. COMPARISON: Comparison is made with the prior examination dated 05/12/2005. FINDINGS: The bone mineral density of the lumbar spine is 1.244, corresponding to a T-score of 0.5, and a Z-score of 1.7. This is indicative of normal bone mineral density. This represents a BMD change of 0.2% compared to the prior exam. This is not statistically significant. The bone mineral density of the left total hip is 0.958, corresponding to a T-score of -0.4, and a Z-score of 1.3. This is indicative of normal bone mineral density. This represents a BMD change of -11.0% compared to the prior exam. This is statistically significant. The bone mineral density of the left femoral neck is 0.838, corresponding to a T-score of -1.4, and a Z-score of 0.4. This is indicative of osteopenia. This represents a BMD change of -1.4% compared to the prior exam. FRACTURE RISK: The FRAX index suggests a ten year probability of major osteoporotic fracture of 12.1%, and of hip fracture 3.0%. MM/XR DEXA axial skeleton IMPRESSION: Based on bone mineral density, and according to World Health Organization (WHO) criteria, the diagnosis is consistent with osteopenia. All bone density values are in grams per centimeter squared (g/cm2). Statistically, 68% of repeat scans fall within 1 SD (+/- 0.010 g/cm2 for AP spine L1-L4) and 1 SD (+/- 0.012 g/cm2 for femur total) FRAX is a trademark of the [employer] [employer] [facility] [employer], a World Health Organization (WHO) Collaborating Center. Electronically signed by: William Cisneros MD 10/17/2024 12:21 PM EDT
== END 2024-10-17 11:16 | disposition home or self-care (01) ==
LOC: HO.MAMMO 11:15
PROVIDERS: PCP Internal Medicine; Visit Provider Physician Assistant Medical
DX: M81.0 Age-related osteoporosis without current pathological fracture (principal)
CPT/HCPCS: 77080

== ENCOUNTER → 2024-10-17 11:30 | Outpatient (BNV) | payer OTHER, SELFPAY | PROVIDERS: PCP Internal Medicine; Visit Provider Radiology Diagnostic Radiology | DX: E28.39 Other primary ovarian failure (principal) | CPT/HCPCS: 77080 ==

== ENCOUNTER 2024-11-01 16:23 | Outpatient (REF) | payer OTHER, SELFPAY ==
--- NOTE | ~2024-11-01 | CT_ITS ---
EXAMINATION: CT CERVICAL SPINE WITHOUT CONTRAST CLINICAL INFORMATION: Z91.81 - History of falling COMPARISON: X-ray number 26/01/2024 TECHNIQUE: Axial imaging was performed from the base of the skull through T2 without IV contrast. Coronal and sagittal reformatted images were generated from the original axial data set. ALARA: The examination used one or more of the following radiation dose reduction techniques: Automated exposure control, iterative reconstruction, and/or adjustment of mA and/or KV. DLP: 389 mGY*cm FINDINGS: There is mild reversal cervical lordosis, increased since the x-ray. No fractures are identified. Coarse calcification and nodules are seen in the thyroid gland. There is moderate focal vascular calcification in the brachycephalic and left subclavian artery. C1-C2: Sclerosis and osteophytes are present at the atlantodental articulation. C2-C3: Mild grade 1 anterolisthesis with moderate facet arthropathy C3-C4: Mild grade 1 anterolisthesis moderate facet arthropathy greater on the left. C4-C5: Moderate to severe disc space narrowing with endplate degenerative irregularity and osteophytes. Vertebral osteophytes and mild to moderate facet arthropathy. Moderate foraminal narrowing, greater than left. C5-C6: Moderate disc space narrowing with endplate degenerative irregularity and osteophytes. There are vertebral osteophytes and mild facet arthropathy with moderate foraminal narrowing. C6-7: There is mild disc space narrowing and endplate irregularity with endplate and uncovertebral osteophytes resulting in moderate to severe foraminal narrowing. C7-T1: There is subtle anterolisthesis and moderate disc height. There are uncovertebral osteophytes and mild facet arthropathy. There is [id number] foraminal narrowing, greater on the right. CT/CT cervical spine wo IV con IMPRESSION: There is mild reversal of cervical lordosis. This can be related to degenerative changes, positioning, muscle spasm, or posterior soft tissue injury. Multilevel degenerative disc disease with uncovertebral and facet arthropathy most advanced at C4-5 and C5-6. Thyroid nodules and calcification. Follow-up with ultrasound Electronically signed by: Artemio Cain MD 11/01/2024 05:56 PM EDT
== END 2024-11-01 16:24 | disposition home or self-care (01) ==
LOC: HO.CT 16:23
PROVIDERS: PCP Internal Medicine; Visit Provider Physician Assistant Medical
DX: S49.92XD Unspecified injury of left shoulder and upper arm, subsequent encounter (principal); M54.2 Cervicalgia; Z91.81 History of falling
CPT/HCPCS: 72125

== ENCOUNTER → 2024-11-01 16:25 | Outpatient (BNV) | payer OTHER, SELFPAY | PROVIDERS: PCP Internal Medicine; Visit Provider Radiology Diagnostic Radiology | DX: M50.321 Other cervical disc degeneration at C4-C5 level (principal) | CPT/HCPCS: 72125 ==

== ENCOUNTER 2024-11-03 18:08 | Emergency (ER) | payer OTHER, SELFPAY ==
[2024-11-03 18:18] VITALS: BP 136/88; PULSE 70; RESP 16; TEMP 36.1; O2SAT 95; BMI 36.5
--- NOTE | 2024-11-03 18:20 | ED.GENADULT ---
HPI - General Adult General Chief complaint: Allergic Reaction Stated complaint: bee sting right index finger called ahead Time Seen by Provider: 11/03/24 18:44 Source: patient Mode of arrival: ambulatory Limitations: no limitations History of Present Illness ED Provider: Dr. Blanquita Lopez HPI narrative: patient comes to the emergency room complaining of a bee sting to the right index finger. According to the patient, she was walking her dog and got stung in the right hand by a yellow jacket Versus a bee. Patient states that her dog got stung as well. Patient denies any chest pain or shortness of breath, no hives. Only localized reaction around the dorsum of the right hand in the index finger. Patient states she took 1 tablet of Benadryl prior to arriving to the ED. Related Data Home Medications ?Medication ?Instructions ?Recorded ?Confirmed cholecalciferol (vitamin D3) 25 25 mcg PO DAILY 08/28/24 08/28/24 mcg (1,000 unit) capsule ezetimibe 10 mg tablet 10 mg PO DAILY 08/28/24 08/28/24 lisinopril 20 mg tablet 20 mg PO DAILY 08/28/24 08/28/24 primidone 50 mg tablet 50 mg PO BID 08/28/24 08/28/24 timolol maleate 0.5 % eye drops drp ophthalmic (eye) 08/28/24 08/28/24 Previous Rx's ?Medication ?Instructions ?Recorded alendronate 70 mg tablet (Fosamax) 70 mg PO QWEEK 3 months #13 tabs 10/18/24 diphenhydramine HCl 25 mg tablet 25 mg PO .prn PRN allergic 10/18/24 (Benadryl Allergy) reaction #30 tabs diphenhydramine HCl 2 % topical 1 appl topical BID PRN itching 11/03/24 gel (Benadryl) #103 mL hydrocortisone 1 % topical cream 1 appl topical QID PRN skin 11/03/24 irritation #28.35 grams Allergies Allergy/AdvReac Type Severity Reaction Status Date / Time aspirin (ASPIRIN) Allergy Unknown ANAPHYLAXIS, Verified 11/03/24 18:22 hives cefaclor Allergy Unknown anaphylaxis Verified 11/03/24 18:22 cephalexin Allergy Unknown anaphylaxis Verified 11/03/24 18:22 Cephalosporins Allergy Unknown DIFFICULTY Verified 11/03/24 18:22 (CEPHALOSPORINS) BREATHING erythromycin base Allergy Unknown ANAPHYLAXIS Verified 11/03/24 18:22 (ERYTHROMYCIN BASE) ibuprofen (From MOTRIN) Allergy Unknown HIVES Verified 11/03/24 18:22 Iodinated Contrast Media (IV Allergy Unknown ANAPHYLAXIS Verified 11/03/24 18:22 DYE, IODINE CONTAINING) ketoconazole (KETOCONAZOLE) Allergy Unknown ANAPHYLAXIS Verified 11/03/24 18:22 Penicillins (PENICILLINS) Allergy Unknown ANAPHYLAXIS Verified 11/03/24 18:22 ranitidine (Zantac) Allergy Unknown hives Verified 11/03/24 18:22 simvastatin (From ZOCOR) Allergy Unknown ANAPHYLAXIS Verified 11/03/24 18:22 Dye SHELTER Blue 1 Allergy Unknown Unknown Uncoded 11/03/24 18:28 Environmental Allergies Allergy Unknown Unknown Uncoded 11/03/24 18:28 From CEFOTAN Allergy Unknown ANAPHYLAXIS Uncoded 11/03/24 18:28 From ZANTAC Allergy Unknown ANAPHYLAXIS Uncoded 11/03/24 18:28 Insect bites ( Spiders and Allergy Unknown Unknown Uncoded 11/03/24 18:28 Bee Ketoconazole Allergy Unknown Unknown Uncoded 11/03/24 18:28 Zocor Allergy Unknown myalgias Uncoded 11/03/24 18:28 Review of Systems Review of Systems: Constitutional : No Weight loss, No Fever, No Chills, No Night Sweats, No Fatigue, No Malaise ENT/Mouth : No Hearing loss, No Ear Pain, No Nasal Congestion, No Sinus Pain, No Hoarseness, No sore throat, No Rhinorrhea, No Swallowing Difficulty Eyes: No Eye Pain, No Swelling, No Redness, No Foreign Body, No Discharge, No Vision Changes Cardiovascular : No Chest Pain, No SOB, No Dyspnea on Exertion, No Orthopnea, No Edema, No Palpitations Respiratory : No Cough, No Sputum, No Wheezing, No Smoke Exposure, No Dyspnea Gastrointestinal : No Nausea, No Vomiting, No Diarrhea, No Constipation, No abdominal Pain, No Hematochezia, No Melena Genitourinary : no irregular bleeding, No Dysuria, No Urinary Frequency, No Hematuria, No Urinary Incontinence, No Urgency, No Flank Pain, No Urinary Flow Changes, No Hesitancy Musculoskeletal : No joint pain, No Myalgias, No Joint Swelling Skin : complaining of erythema and swelling around the index finger on the right hand on the dorsum Neuro : No Weakness, No Numbness, No Paresthesias, No Loss of Consciousness, No Dizziness, No Headache Psych : No Anxiety/Panic, No Depression, No SI/HI/AH/VH, No Social Issues, Heme/Lymph: No Bruising, No Bleeding,No Lymphadenopathy Endocrine : No Polyuria, No Polydipsia, No Temperature Intolerance [facility] Past Medical History Medical History Osteopenia Vitamin D deficiency Class 2 obesity with body mass index (BMI) of 37.0 to 37.9 in adult Glaucoma History of diverticulitis Environmental allergies Tubular adenoma Lumbar spondylosis Tremor of right hand Pure hypercholesterolemia, unspecified Establishing care with new doctor, encounter for Hypertension Neck pain History of recent fall Injury of left shoulder History of mammogram (~07/18/24) Surgical History (Updated 08/28/24 @ 12:10 by Carol Aguilar PA-C) History of colonoscopy (~09/24/14) History of breast biopsy History of tonsillectomy Hx of cataract surgery Hx of wisdom tooth extraction History of partial hysterectomy Hx of arthroscopy of left knee Hx of appendectomy Family History Family History (Updated 08/28/24 @ 11:21 by NARCISA Bradley) Father No problems noted. Mother No problems noted. Social History Social History (Updated 08/28/24 @ 11:32 by NARCISA Bradley) Housing: House Alcohol intake: current Alcohol intake frequency: holidays/special occasions only Patient Tobacco Use Status: Former Tobacco user Smoked in Last 30 Days: No Use of substances other than those prescribed or required for medical reasons: No Do you have a plan to hurt others: No Plan service: No Current occupational status: retired Cognitive needs: No Hearing needs: No Vision needs: Yes (reading glasses) Physical Exam ED Vital Signs: Vital Signs - 24 hr 11/03/24 18:18 11/03/24 18:46 Temperature 97.0 F 98.3 F Pulse Rate 70 70 Respiratory Rate 16 18 Blood Pressure 136/88 113/64 Pulse Oximetry 95 100 Oxygen Delivery Method Room Air Room Air BMI result Body Mass Index 36.5 Const Other: Appearance: Alert. Oriented X3. No acute distress. Eyes: Pupils equal, round and reactive to light. ENT: Pharynx normal. Neck: Normal inspection. Neck supple. No lymph nodes noted. No crepitus CVS: Normal heart rate and rhythm. Pulses normal. Normal S1 and S2 Respiratory: No respiratory distress. Breath sounds normal. No Wheezing. No rales Abdomen: Soft and nontender. No rigidity. No distention. Skin: Skin warm and dry. Normal skin color. Normal skin turgor. around patient's index finger on the right side dorsal aspect, there is erythema, warmth to touch. Patient able to flex and extend all fingers Extremities: No lower extremity edema. No Lacerations. No Rash Neuro: Oriented X 3. No motor deficit. No sensory deficit. Moving all extremities. No slurred speech. CN 2 through 12 grossly intact Psych: calm, cooperative, normal affect Course Course Course Narrative: 11/03/24 1820 SHARON Orellana This is a Rapid Medical Examination (RME) performed by Kay Knowles PA-C in triage. Full HPI, ROS, assessment and treatment plan per primary provider in the Main ED. 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 reports burning pain to digit, now traveling up her arm. feels hot. no difficulty breathing/ swallowing, N/V. has allergy to bee stings - cannot recall the reaction. took 25mg benadryl captain canner[employer] tender. Medications Administered Discontinued Medications Generic Name Dose Route Start Last Admin Trade Name Freq PRN Reason Stop Dose Admin Prednisone 50 mg 11/03/24 19:00 11/03/24 19:07 Prednisone 10 Mg Tablet PO 11/03/24 19:01 50 mg ONCE ONE Administration Medical Decision Making Medical Decision Making [facility] Narrative: I discussed the physical exam with the patient, patient has only localized findings, no diffuse allergic reaction, no angioedema. However compromise, vitals stable. Patient states that she took Benadryl prior to arrival, patient was given p.o. prednisone . Patient states she has an allergic reaction to Pepcid therefore not given Discharge Plan Discharge Clinical Impression: Bee sting Patient Disposition: Home, Self-Care Instructions: Insect Bite or Sting (ED) Additional Instructions: Please follow-up with your primary care physician tomorrow. If you have any worsening or new symptoms, please return to the emergency room or call 911 Prescriptions: New hydrocortisone 1 % cream 1 appl topical QID PRN (Reason: skin irritation) Qty: 28.35 0RF Benadryl 2 % gel 1 appl topical BID PRN (Reason: itching) Qty: 103 0RF No Action alendronate [Fosamax] 70 mg tablet 70 mg PO QWEEK 90 Days Qty: 13 3RF diphenhydramine HCl [Benadryl Allergy] 25 mg tablet 25 mg PO .prn PRN (Reason: allergic reaction) Qty: 30 0RF lisinopril 20 mg tablet 20 mg PO DAILY timolol maleate 0.5 % drops ophthalmic (eye) ezetimibe 10 mg tablet 10 mg PO DAILY primidone 50 mg tablet 50 mg PO BID cholecalciferol (vitamin D3) 25 mcg (1,000 unit) capsule 25 mcg PO DAILY Print Language: Pashto
--- NOTE | 2024-11-03 18:45 | PC.NURSE ---
pt is alert and oriented, skin pwd, respirations even and unlabored, ls clear, air way patent and speaking in full and clear sentences, pt reports getting stung by a bee in her right second finger around 1800, finger red/swollen/painful, ns on the monitor,
[2024-11-03 18:46] VITALS: BP 113/64; PULSE 70; RESP 18; TEMP 36.8; O2SAT 100
[2024-11-03] MEDS: predniSONE 10 MG TABLET 50 MG PO (19:07)
--- NOTE | 2024-11-03 19:10 | PC.NURSE ---
pt medicated per JUL pt sts that she believes redness and swelling is improving
[2024-11-03 19:23] VITALS: BP 113/64; PULSE 70; RESP 18; TEMP 36.8; O2SAT 100
== END 2024-11-03 19:24 | disposition home or self-care (01) ==
LOC: HO.ED 19:15
PROVIDERS: Emergency Provider Emergency Medicine; PCP Internal Medicine
DX: T63.441A Toxic effect of venom of bees, accidental (unintentional), initial encounter (principal); Y93.9 Activity, unspecified; Y92.9 Unspecified place or not applicable; Y99.9 Unspecified external cause status
CPT/HCPCS: 99283; 99284

== ENCOUNTER 2024-11-11 08:02 | Outpatient (REF) | payer OTHER, SELFPAY ==
--- NOTE | ~2024-11-11 | XR_ITS ---
EXAMINATION: XR SHOULDER, LEFT CLINICAL INFORMATION: M25.512 - Pain in left shoulder COMPARISON: None available. TECHNIQUE: AP, scapular Y, and axial view of the left shoulder. FINDINGS: The AC joint demonstrates marginal osteophytes. There is no separation. Glenohumeral joint demonstrates small marginal osteophytes. There is no dislocation. No other abnormality. XR/XR shoulder LT min 2V IMPRESSION: [id number] degenerative changes of the A.C. and glenohumeral joints. Electronically signed by: Artemio Cain MD 11/11/2024 12:01 PM EDT
== END 2024-11-11 08:03 | disposition home or self-care (01) ==
LOC: HO.HOSX 08:02
PROVIDERS: Visit Provider Physician Assistant
DX: M77.8 Other enthesopathies, not elsewhere classified (principal); M25.512 Pain in left shoulder
CPT/HCPCS: 73030

== ENCOUNTER 2024-11-11 11:15 | Outpatient (AMB) | payer OTHER, SELFPAY ==
--- NOTE | 2024-11-11 11:23 | MHC.OFFVIS ---
Vital Signs 11/11/24 11:38 Height 5 ft Weight 186 lb BMI 36.3 Intake Visit Reasons: Newprob-Injury of the left shoulder-DOI 08/23/24 Intake Note: Gloria Valente is an 84 year old female who presents today as an established patient for a new problem visit to evaluate left shoulder pain, DOI 08/23/24. Patient was seen by her PCP due to ongoing pain after she sustained a fall, x-rays were ordered and she was referred to orthopedics. Patient reports that she fell on her right side however her pain is located on her left side. States when she was being helped up with her left arm. Currently her pain radiates down her arm and up towards her neck. No other treatment. Allergies aspirin (ASPIRIN) Allergy (Unknown, Verified 11/11/24 11:36) ANAPHYLAXIS, hives cefaclor Allergy (Unknown, Verified 11/11/24 11:36) anaphylaxis cephalexin Allergy (Unknown, Verified 11/11/24 11:36) anaphylaxis Cephalosporins (CEPHALOSPORINS) Allergy (Unknown, Verified 11/11/24 11:36) DIFFICULTY BREATHING erythromycin base (ERYTHROMYCIN BASE) Allergy (Unknown, Verified 11/11/24 11:36) ANAPHYLAXIS ibuprofen (From MOTRIN) Allergy (Unknown, Verified 11/11/24 11:36) HIVES Iodinated Contrast Media (IV DYE, IODINE CONTAINING) Allergy (Unknown, Verified 11/11/24 11:36) ANAPHYLAXIS ketoconazole (KETOCONAZOLE) Allergy (Unknown, Verified 11/11/24 11:36) ANAPHYLAXIS Penicillins (PENICILLINS) Allergy (Unknown, Verified 11/11/24 11:36) ANAPHYLAXIS ranitidine (Zantac) Allergy (Unknown, Verified 11/11/24 11:36) hives simvastatin (From ZOCOR) Allergy (Unknown, Verified 11/11/24 11:36) ANAPHYLAXIS Dye SKILLED NURSING Blue 1 Allergy (Unknown, Uncoded 11/11/24 11:36) Unknown Environmental Allergies Allergy (Unknown, Uncoded 11/11/24 11:36) Unknown From CEFOTAN Allergy (Unknown, Uncoded 11/11/24 11:36) ANAPHYLAXIS From ZANTAC Allergy (Unknown, Uncoded 11/11/24 11:36) ANAPHYLAXIS Insect bites ( Spiders and Bee Allergy (Unknown, Uncoded 11/11/24 11:36) Unknown Ketoconazole Allergy (Unknown, Uncoded 11/11/24 11:36) Unknown Zocor Allergy (Unknown, Uncoded 11/11/24 11:36) myalgias HPI HPI Newprob-Injury of the left shoulder-DOI 08/23/24: Details: 84-year-old female presents to the office today for discomfort in the left shoulder. She noticed pain started around 08/23/2024. She complains of discomfort with reaching up overhead and behind the plane of her body. She has had no current treatment to date. [facility] Medical History (Updated 11/11/24 @ 16:23 by Gregorio Benson PA-C) Thyroid nodule Osteopenia Vitamin D deficiency Class 2 obesity with body mass index (BMI) of 37.0 to 37.9 in adult Glaucoma History of diverticulitis Environmental allergies Tubular adenoma Lumbar spondylosis Tremor of right hand Pure hypercholesterolemia, unspecified Establishing care with new doctor, encounter for Hypertension Neck pain History of recent fall Injury of left shoulder History of mammogram (~07/18/24) Surgical History (Updated 11/11/24 @ 09:20 by Chaya Verde) History of colonoscopy (~11/29/19) History of breast biopsy History of tonsillectomy Hx of cataract surgery Hx of wisdom tooth extraction History of partial hysterectomy Hx of arthroscopy of left knee Hx of appendectomy Family History (Updated 08/28/24 @ 11:21 by NARCISA Bradley) Father No problems noted. Mother No problems noted. Social History (Updated 08/28/24 @ 11:32 by NARCISA Bradley) Housing: House Alcohol intake: current Alcohol intake frequency: holidays/special occasions only Patient Tobacco Use Status: Former Tobacco user service: No Current occupational status: retired Cognitive needs: No Hearing needs: No Vision needs: Yes (reading glasses) Review of Systems Const All systems reviewed & are unremarkable except as noted in HPI and below Physical Exam Vital Signs: BMI result Body Mass Index 36.3 Const General: cooperative and no acute distress Orientation/consciousness: patient oriented x3 Resp Effort & Inspection: normal respiratory effort and able to speak in complete sentences Cardio Peripheral pulses: Peripheral pulses 2+ throughout Neuro General: patient oriented x3 Extrem Other: Left shoulder normal to inspection she has full range of motion in all planes. Mild tenderness over the proximal biceps tendon. She has positive Henriquez. 5/5 rotator cuff strength. Neurovascularly intact. Results Reviewed Results Reviewed: XR shoulder LT min 2V IMPRESSION: [id number] degenerative changes of the A.C. and glenohumeral joints. Assessment & Plan Assessment & Plan (1) Left shoulder tendonitis: Code(s): M77.8 - Other enthesopathies, not elsewhere classified Category: Medical Plan: We discussed options which include PT, NSAIDs and injections. She will defer on the injection today and proceed with PT and NSAIDs. If symptoms persist she will contact me for an injection, otherwise, prn. Orders: Orders XR shoulder LT min 2V Today M25.512 - Pain in left shoulder Coding Level of Care Code Est Pt Level 3 (45298) Complex EM visit Add On G2211 Diagnoses Left shoulder tendonitis M77.8
[2024-11-11 11:38] VITALS: BMI 36.3
== END 2024-11-11 15:48 | disposition home or self-care (01) ==
LOC: HO.HOS 11:16
PROVIDERS: PCP Internal Medicine; Visit Provider Physician Assistant
DX: M77.8 Other enthesopathies, not elsewhere classified (principal)
CPT/HCPCS: 99213

== ENCOUNTER → 2024-11-11 11:18 | Outpatient (BNV) | payer OTHER, SELFPAY | PROVIDERS: Visit Provider Radiology Diagnostic Radiology | DX: M19.012 Primary osteoarthritis, left shoulder (principal) | CPT/HCPCS: 73030 ==

== ENCOUNTER 2024-11-12 10:40 | Outpatient (AMB) | payer OTHER, SELFPAY ==
[2024-11-12 10:40] VITALS: BP 137/67; PULSE 66; RESP 16; TEMP 36.6; O2SAT 97; BMI 35.9
--- NOTE | 2024-11-12 10:40 | A.OFFPC_ITS ---
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 Required: No Accompanied by: Self / Same As Patient Allergies aspirin (ASPIRIN) Allergy (Unknown, Verified 11/12/24 10:42) ANAPHYLAXIS, hives cefaclor Allergy (Unknown, Verified 11/12/24 10:42) anaphylaxis cephalexin Allergy (Unknown, Verified 11/12/24 10:42) anaphylaxis Cephalosporins (CEPHALOSPORINS) Allergy (Unknown, Verified 11/12/24 10:42) DIFFICULTY BREATHING erythromycin base (ERYTHROMYCIN BASE) Allergy (Unknown, Verified 11/12/24 10:42) ANAPHYLAXIS ibuprofen (From MOTRIN) Allergy (Unknown, Verified 11/12/24 10:42) HIVES Iodinated Contrast Media (IV DYE, IODINE CONTAINING) Allergy (Unknown, Verified 11/12/24 10:42) ANAPHYLAXIS ketoconazole (KETOCONAZOLE) Allergy (Unknown, Verified 11/12/24 10:42) ANAPHYLAXIS Penicillins (PENICILLINS) Allergy (Unknown, Verified 11/12/24 10:42) ANAPHYLAXIS ranitidine (Zantac) Allergy (Unknown, Verified 11/12/24 10:42) hives simvastatin (From ZOCOR) Allergy (Unknown, Verified 11/12/24 10:42) ANAPHYLAXIS Dye ALF Blue 1 Allergy (Unknown, Uncoded 11/12/24 10:42) Unknown Environmental Allergies Allergy (Unknown, Uncoded 11/12/24 10:42) Unknown From CEFOTAN Allergy (Unknown, Uncoded 11/12/24 10:42) ANAPHYLAXIS From ZANTAC Allergy (Unknown, Uncoded 11/12/24 10:42) ANAPHYLAXIS Insect bites ( Spiders and Bee Allergy (Unknown, Uncoded 11/12/24 10:42) Unknown Ketoconazole Allergy (Unknown, Uncoded 11/12/24 10:42) Unknown Zocor Allergy (Unknown, Uncoded 11/12/24 10:42) myalgias Tobacco use date assessed: 08/28/24 Dental Screening Dental Screen Date: 08/28/24 [facility] Medical History Multiple thyroid nodules Thyroid nodule Osteopenia Vitamin D deficiency Class 2 obesity with body mass index (BMI) of 37.0 to 37.9 in adult Glaucoma History of diverticulitis Environmental allergies Tubular adenoma Lumbar spondylosis Tremor of right hand Pure hypercholesterolemia, unspecified Establishing care with new doctor, encounter for Hypertension Neck pain History of recent fall Injury of left shoulder History of mammogram (~07/18/24) Surgical History History of colonoscopy (~11/29/19) History of breast biopsy History of tonsillectomy Hx of cataract surgery Hx of wisdom tooth extraction History of partial hysterectomy Hx of arthroscopy of left knee Hx of appendectomy Family History Father No problems noted. Mother No problems noted. Social History Housing: House Alcohol intake: current Alcohol intake frequency: holidays/special occasions only Patient Tobacco Use Status: Former Tobacco user service: No Current occupational status: retired Cognitive needs: No Hearing needs: No Vision needs: Yes (reading glasses) Questionnaire PHQ-9 Over the last 2 weeks, how often have you been bothered by any of the following problems? 1. Little interest or pleasure in doing things: not at all 2. Feeling down, depressed, or hopeless: not at all 3. Trouble falling or staying asleep, or sleeping too much: not at all 4. Feeling tired or having little energy: not at all 5. Poor appetite or overeating: not at all 6. Feeling bad about yourself - or that you are a failure or have let yourself or your family down: not at all 7. Trouble concentrating on things, such as reading the newspaper or watching television: not at all 8. Moving or speaking so slowly that other people could have noticed. Or the opposite - being so fidgety or restless that you have been moving around a lot more than usual: not at all 9. Thoughts that you would be better off or of hurting yourself in some way: not at all Total score: 0 Depression Screening Interpretation: Negative Depression Screening Done: Yes 20935 - PHQ-9 Billing: Yes Source: Developed by Drs. William Bach, Christiano Hogan and colleagues, with an educational lucina from [employer]. Thrive Questionnaire Date Thrive assessed: 08/28/24 I am a: Patient What is your living situation today?: I have a steady place to live Within the past 12 months, did the food you bought not last and you didn't have the money to get more?: Never true Within the past 12 months, did you worry whether your food would run out before you got money to buy more?: Never true Do you have trouble paying for medicines?: No Do you have trouble getting transportation to medical appointments?: No Do you have trouble paying your heating and electricity bill?: No Do you have trouble taking care of your child, family member or friend?: No Do you have trouble with day-to-day activities such as bathing, preparing meals, shopping, managing finances, etc.?: No Are you currently unemployed and looking for a job?: No Are you interested in more education?: No Please select the resources that you would like help with: None THRIVE Score: 0 AUDIT C Alcohol Use Questionnaire (AUDIT-C) 1. How often do you have a drink containing alcohol?: Monthly or less 2. How many drinks containing alcohol do you have on a typical day when you are drinking?: 1 or 2 3. How often do you have six or more drinks on one occasion?: Never Total Score: 1 Score Reviewed/Action Taken: No BRIAN-7 AMB Questionnaire BRIAN-7 Date BRIAN - 7 assessed: 08/28/24 Feeling nervous, anxious, or on edge: 0 = Not at all Not being able to stop or control worryin = Not at all Worrying too much about different things: 0 = Not at all Trouble relaxin = Not at all Being so restless that it is hard to sit still: 0 = Not at all Becoming easily annoyed or irritable: 0 = Not at all Feeling afraid as if something awful might happen: 0 = Not at all Total BRIAN-7 score (0-4 normal; 5-9 mild; 10-14 moderate; 15-21 severe): 0 Source: Developed by Michelle Jean Kurt Kroenke and colleagues, with an educational lucina from [employer]. BRIAN-7 Assessment Billing BRIAN-7 Assessment Tool: BRIAN-7 Assessment 00221 Physical exam (Primary Care) Vital Signs: Last Vital Signs Temp 97.8 F 11/12/24 10:40 Pulse 66 11/12/24 10:40 Resp 16 11/12/24 10:40 BP 137/67 11/12/24 10:40 Pulse Ox 97 11/12/24 10:40 Oxygen Delivery Method Room Air 11/12/24 10:40 BMI result Body Mass Index 35.9 Tobacco/Smoking Status: Tobacco use Status Tobacco use date assessed 08/28/24 11/12/24 10:51 Patient Tobacco Use Status Former Tobacco user 11/12/24 10:51 PHQ-9: PHQ-9 Score PHQ-9: Total score 0 11/12/24 10:51 Depression Screening Interpretation: Negative Thrive Assessment: Date of Thrive Assessment Date Thrive assessed 08/28/24 11/12/24 10:51 Coding Level of Care Code Est Pt Level 4 (12770) Complex EM visit Add On G2211 Diagnoses Left shoulder strain S46.912A Additional Codes BRIAN-7 Assessment Billing - BRIAN-7 Assessment Tool: BRIAN-7 Assessment 03430 ([id number]) PHQ-9 - 67639 - PHQ-9 Billing: Yes ([id number]) Assessment & Plan Assessment & Plan (1) Left shoulder strain: Code(s): S46.912A - Strain of unspecified muscle, fascia and tendon at shoulder and upper arm level, left arm, initial encounter Plan: Orders placed Plan History of Present Illness - The patient is an 84-year-old female presenting with concerns regarding osteoporosis and thyroid nodules. - Osteoporosis was identified following a bone density test conducted on October 17, which indicated very brittle bones. - The patient was advised to start Fosamax (alendronate) immediately, but experienced a delay in receiving the correct medication from the pharmacy. - She expressed fear of taking the medication due to multiple allergies. - Thyroid nodules were discovered incidentally, and the patient is concerned due to a family history of thyroid issues and a friend's recent from thyroid cancer. - An ultrasound has been recommended, but the patient has not yet received an appointment. - The patient has a significant allergy to C4-10, which caused a severe reaction during a past surgical procedure. - She also has a history of bee sting allergies, recently experiencing multiple stings and requiring prednisone treatment. - Preventative care includes being up to date on vaccinations such as COVID-19, flu, shingles, pneumococcal, and Tdap. Social History Review of Systems - Musculoskeletal: Reports very brittle bones. - Endocrine: Reports thyroid nodules. - Allergic/Immunologic: Reports multiple allergies including severe reaction to C4-10 and bee stings. Physical Exam General: Cooperative and healthy appearing Nutritional Appearance: Well nourished Orientation/consciousness: Patient oriented x3 Limitations: No limitations Head: Normal to inspection General: Appearance normal, both eyes and all related structures Neck: Normal visual inspection Chest: Normal palpation of entire chest wall Respiratory: Normal respiratory effort Neurology: Patient oriented x3 Results - Bone density test on October 17 indicated osteoporosis. Plan 1. Osteoporosis - Initiate treatment with Fosamax (alendronate) once weekly, ensuring proper administration with water and remaining upright for an hour post-ingestion. 2. Thyroid Nodules - Schedule an ultrasound to evaluate thyroid nodules and refer to endocrinology for further assessment and possible fine-needle aspiration. 3. 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 4. Bee Sting Allergy - Continue monitoring for allergic reactions and manage with prednisone as needed. Discussion Notes I discussed the importance of starting Fosamax for osteoporosis and explained the correct administration method to minimize side effects. We also talked about the need for an ultrasound to assess thyroid nodules and the low likelihood of malignancy. I reassured the patient about managing her allergies and emphasized avoiding C4-10. Follow-up with endocrinology was recommended for further evalu ation of thyroid nodules. Patient Instructions - Take Fosamax once weekly with a full glass of water and remain upright for at least one hour. - Schedule an ultrasound for thyroid nodules and follow up with endocrinology. - Avoid C4-10 and monitor for any allergic reactions. - Continue with current vaccinations and preventative care measures. Orders: Orders PT Evaluation and Treatment Today S46.465S - Strain of unspecified muscle, fascia and tendon at shoulder and upper arm level, left arm, initial encounter
== END 2024-11-12 11:11 | disposition home or self-care (01) ==
LOC: HO.HMCSH 10:40
PROVIDERS: PCP Internal Medicine; Visit Provider Internal Medicine
DX: S46.912A Strain of unspecified muscle, fascia and tendon at shoulder and upper arm level, left arm, initial encounter (principal)

== ENCOUNTER → 2024-11-12 10:40 | Outpatient (BNVA) | payer OTHER, SELFPAY | PROVIDERS: PCP Internal Medicine; Visit Provider Internal Medicine | DX: S46.912A Strain of unspecified muscle, fascia and tendon at shoulder and upper arm level, left arm, initial encounter (principal); M81.0 Age-related osteoporosis without current pathological fracture; E04.2 Nontoxic multinodular goiter; Z91.030 Bee allergy status; X58.XXXA Exposure to other specified factors, initial encounter; Y93.9 Activity, unspecified; Y92.9 Unspecified place or not applicable; Y99.9 Unspecified external cause status; Z13.31 Encounter for screening for depression | CPT/HCPCS: 96127 ==

== ENCOUNTER 2024-11-22 08:53 | Outpatient (REF) | payer OTHER, SELFPAY ==
--- OUTSIDE RECORDS SUMMARY | 2024-11-22 08:57 | XMS_ITS | Clinical Summary ---
Author Organization [facility] Address [address] [place] [id number] Phone Care Team Providers Care Tractor Trailer Driver Name Role Phone William Weber Primary Care Provider Allergies Active Allergy Reactions Criticality Noted Date Comments Aspirin 06/03/2023 Cefaclor 06/03/2023 Cefotetan 06/03/2023 Cephalosporins 06/03/2023 Erythromycin 06/03/2023 Gadolinium-Containing Contrast Media 06/03/2023 Ibuprofen 06/03/2023 Penicillins 06/03/2023 Ranitidine Hcl 06/03/2023 Simvastatin 06/03/2023 Medications BETIMOL 0.5 % ophthalmic solution INSTILL 1 DROP IN RIGHT EYE EVERY MORNING 05/06/2023 Active primidone (MYSOLINE) 50 MG tablet 06/02/2023 Active lisinopril (PRINIVIL,ZESTR IL) 20 MG tablet 04/06/2023 Active ezetimibe (ZETIA) 10 mg tablet 04/06/2023 Active Active Problems No known active problems Social History Tobacco Use Types Packs/Day Years Used Date Smoking Tobacco: Never Assessed Education Answer Date Recorded Are you interested in more education? Not on shadi e 06/03/2023 Are you concerned about learning? Not on file 06/03/2023 No 06/03/2023 No 06/03/2023 Digital Access Answer Date Recorded No 06/03/2023 No 06/03/2023 Reliable internet access at home? Not on file 06/03/2023 Device with a working camera? Not on file Comments Unknown Sex and Gender Information Value Date Recorded Sex Assigned at Not on file Legal Sex Female 9:10 AM EST Gender Identity Not on file Sexual Orientation Not on file Last Filed Vital Signs Vital Sign Reading Time Taken Comments Blood Pressure 102/68 06/03/2023 10:01 AM EST Pulse 70 06/03/2023 10:01 AM EST Temperature 36.7 C (98 F) 06/03/2023 10:01 AM EST Respiratory Rate 16 06/03/2023 10:01 AM EST Oxygen Saturation 97% 06/03/2023 10:01 AM EST Inhaled Oxygen Concentration - - Weight 88.5 kg (195 lb) 06/03/2023 10:01 AM EST Height 152.4 cm (5') 06/03/2023 10:01 AM EST Body Mass Index 38.08 06/03/2023 10:01 AM EST Plan of Treatment Health Maintenance Due Date Last Done Comments Adult Td,Tdap Booster 1940 CREATININE LEVEL 1940 POTASSIUM LEVEL 1940 DEPRESSION SCREENING 1952 PNEUMOCOCCAL VACCINES (50+ y ears) (1 of 1 - PCV) 1990 ZOSTER VACCINES (1 of 2) 1990 OSTEOPOROSIS SCREENING INITI AL (ONE-TIME) 2005 RSV VACCINE (1 - 1-dose 75+ series) 10/22/2015 COVID-19 VACCINE (2023-2 5 season) 2024 HEPATITIS A VACCINES Aged Out No long er eligible based on patient's age to complete this topic HIB VACCINES Aged Out No longer eligi ble based on patient's age to complete this topic MENINGOCOCCAL VACCINES (ACWY) Aged Out No longer eligible based on patient's age to complete this topic MENINGOCOCCAL VACCINES (B) Aged Out N o longer eligible based on patient's age to complete this topic Medical Devices Not on file Insurance [employer] P[employer] PPO Member Subscriber Plan / Payer (Ef fective 2010-Present) Name:Gloria Raines Relation to Subscriber:Self Name:Gloria Raines Payer ID:[id number] ([facility]) Type:PPO Address: [address] [place] [phone] [employer] PPO Member Subscriber Plan / Payer (Ef fective 2010-Present) Name:Gloria Raines Relation to Subscriber:Self Name:Gloria Raines Payer ID:[id number] ([facility]) Type:PPO Address: [address] [place] [phone] [employer] PPO CIGNA PPO [employer] PPO Care Teams Tractor Trailer Driver Relationship Specialty Start Date End Date William Weber DO [address] [place] [phone] PCP - General Internal Medicine 06/03/23 Additional Source Comments The information contained in this document represents components of the legal health record. It is not the complete legal health record.[facility]
[2024-11-22 09:14] LABS: MANUAL DIFF FLAG NO
[2024-11-22 10:28] LABS: Hematocrit 41.7 % (37.0-47.0); Hemoglobin 13.8 g/dl (12.0-16.0); Imm Gran Abs Auto 0.02 X10*3/uL (0.00-0.03); Imm Gran Pct Auto 0.3 % (0.0-0.4); Lymphocytes Absolute Auto 1.8 X10*3/uL (1.2-4.9); Mean Corpuscular HGB Conc 33.1 g/dl (31.0-35.0); Mean Corpuscular Hemoglobin 30.8 pg (27.0-33.0); Mean Corpuscular Volume 93.1 fL (80.0-98.0); NRBC Abs Auto 0.000 X10*3/uL (0.0-0.012); NRBC Pct Auto 0.0 /100WBC (0.0-0.2); Platelet Count 200 X10*3/uL (160-400); Red Blood Count 4.48 X10*6/uL (4.20-5.50); White Blood Count 6.6 X10*3/uL (4.8-10.8)
[2024-11-22 11:18] LABS: Magnesium 2.2 mg/dL (1.6-2.6)
[2024-11-22 11:38] LABS: Folate 7.9 ng/mL (> or = 4.0); Vitamin B12 403 pg/mL (200-900)
== END 2024-11-22 08:54 | disposition home or self-care (01) ==
LOC: HO.LAB 08:53
PROVIDERS: PCP Internal Medicine; Visit Provider Physician Assistant Medical
DX: Z00.00 Encounter for general adult medical examination without abnormal findings (principal)
CPT/HCPCS: 36415; 82306; 82550; 82607; 82746; 83735; 84443; 85025; 85652; 86140

== ENCOUNTER 2024-12-04 08:38 | Outpatient (REF) | payer OTHER, SELFPAY ==
--- NOTE | ~2024-12-04 | US_ITS ---
EXAMINATION: US THYROID HISTORY: E04.1 - Nontoxic single thyroid nodule TECHNIQUE: Real-time grayscale ultrasound imaging was performed and images were reviewed. COMPARISON: Correlation is made with a CT of the cervical spine dated 11/01/2024. FINDINGS: SIZE: The right thyroid lobe measures 5.1 x 3.1 x 1.7 cm. The left thyroid lobe measures 5.5 x 2.9 x 1.7 cm. The isthmus measures 5 mm. FLOW: Flow to the gland is increased. ECHOGENICITY: The echotexture of the gland is heterogeneous. NODULES: Multiple spongiform nodules are seen on the right which are not concerning. On the left, the gland is diffusely heterogeneous, but no discrete nodules are identified. US/US thyroid IMPRESSION: No suspicious thyroid nodules are identified. ACR TI-RADS Guidelines TR1 (0 points): Benign. No follow-up or biopsy required TR2 (2 points): Not Suspicious. No biopsy or follow up indicated TR3 (3 points): Mildly Suspicious. FNA if >= 2.5 cm, Follow if >= 1.5 cm TR4 (4-6 points): Moderately Suspicious. FNA if >= 1.5 cm, Follow if >= 1.0 cm TR5 (>=7 points): Highly Suspicious. FNA if >= 1.0 cm, Follow if >= 0.5 cm Electronically signed by: William Cisneros MD 12/04/2024 12:20 PM EDT
--- OUTSIDE RECORDS SUMMARY | 2024-12-04 08:51 | XMS_ITS | Clinical Summary ---
Author Organization [facility] Address [address] [place] [id number] Phone Care Team Providers Care Technician Test Systems Name Role Phone William Weber Primary Care [...] Relation to Subscriber:Self Name:Gloria Raines Payer ID:[id number] ([facility]) Type:PPO Address: [address] [place] [phone] [employer] PPO Member Subscriber Plan / Payer (Ef fective 2010-Present) Name:Gloria Raines Relation to Subscriber:Self Name:Gloria Raines Payer ID:[id number] ([facility]) Type:PPO Address: [address] [place] [phone] [employer] PPO CIGNA PPO CIGNA PPO Care Teams Technician Test Systems Relationship Specialty Start Date End Date William Weber DO [address] [place] [id number] PCP - General Internal Medicine 06/03/23 Additional Source Comments The information contained in this document represents components of the legal health record. It is not the complete legal health record.[facility]
== END 2024-12-04 08:39 | disposition home or self-care (01) ==
LOC: HO.US 08:38
PROVIDERS: PCP Internal Medicine; Visit Provider Physician Assistant Medical
DX: E04.1 Nontoxic single thyroid nodule (principal)
CPT/HCPCS: 76536

== ENCOUNTER → 2024-12-04 08:39 | Outpatient (BNV) | payer OTHER, SELFPAY | PROVIDERS: PCP Internal Medicine; Visit Provider Radiology Diagnostic Radiology | DX: E04.1 Nontoxic single thyroid nodule (principal) | CPT/HCPCS: 76536 ==

== ENCOUNTER 2024-12-11 15:01 | Outpatient (AMB) | payer OTHER, SELFPAY ==
--- NOTE | 2024-12-11 15:07 | MHC.PC.OV ---
Vital Signs 12/11/24 15:12 Height 5 ft Weight 183 lb 8 oz BMI 35.8 BP 124/68 Blood Pressure Location Lt brachial Position Sitting Pulse 67 Pulse Source Pulse Oximeter Temp 97.1 F Temp Source Temporal Artery Scan Pulse Oximetry (%) 95 Oxygen Delivery Method Room Air Intake Visit Reasons: review ultrasound and follow up Intake Note: Patient is here to follow up on Review US . Service Promoter Salesperson Required: No Passenger Solicitor: Not Required per policy Accompanied by: Self / Same As Patient Allergies aspirin (ASPIRIN) Allergy (Unknown, Verified 12/11/24 15:12) ANAPHYLAXIS, hives cefaclor Allergy (Unknown, Verified 12/11/24 15:12) anaphylaxis cephalexin Allergy (Unknown, Verified 12/11/24 15:12) anaphylaxis Cephalosporins (CEPHALOSPORINS) Allergy (Unknown, Verified 12/11/24 15:12) DIFFICULTY BREATHING erythromycin base (ERYTHROMYCIN BASE) Allergy (Unknown, Verified 12/11/24 15:12) ANAPHYLAXIS ibuprofen (From MOTRIN) Allergy (Unknown, Verified 12/11/24 15:12) HIVES Iodinated Contrast Media (IV DYE, IODINE CONTAINING) Allergy (Unknown, Verified 12/11/24 15:12) ANAPHYLAXIS ketoconazole (KETOCONAZOLE) Allergy (Unknown, Verified 12/11/24 15:12) ANAPHYLAXIS Penicillins (PENICILLINS) Allergy (Unknown, Verified 12/11/24 15:12) ANAPHYLAXIS ranitidine (Zantac) Allergy (Unknown, Verified 12/11/24 15:12) hives simvastatin (From ZOCOR) Allergy (Unknown, Verified 12/11/24 15:12) ANAPHYLAXIS Dye LONG-TERM Blue 1 Allergy (Unknown, Uncoded 12/11/24 15:12) Unknown Environmental Allergies Allergy (Unknown, Uncoded 12/11/24 15:12) Unknown From CEFOTAN Allergy (Unknown, Uncoded 12/11/24 15:12) ANAPHYLAXIS From ZANTAC Allergy (Unknown, Uncoded 12/11/24 15:12) ANAPHYLAXIS Insect bites ( Spiders and Bee Allergy (Unknown, Uncoded 12/11/24 15:12) Unknown Ketoconazole Allergy (Unknown, Uncoded 12/11/24 15:12) Unknown Zocor Allergy (Unknown, Uncoded 12/11/24 15:12) myalgias Tobacco use date assessed: 12/11/24 Fall risk assessment: No Falls in past year Last assessed Fall Risk: 12/11/24 Dental Screening Dental Screen Date: 08/28/24 [facility] Medical History Multiple thyroid nodules Thyroid nodule Osteopenia Vitamin D deficiency Class 2 obesity with body mass index (BMI) of 37.0 to 37.9 in adult Glaucoma History of diverticulitis Environmental allergies Tubular adenoma Lumbar spondylosis Tremor of right hand Pure hypercholesterolemia, unspecified Establishing care with new doctor, encounter for Hypertension Neck pain History of recent fall Injury of left shoulder History of mammogram (~07/18/24) Surgical History History of colonoscopy (~11/29/19) History of breast biopsy History of tonsillectomy Hx of cataract surgery Hx of wisdom tooth extraction History of partial hysterectomy Hx of arthroscopy of left knee Hx of appendectomy Family History (Updated 12/11/24 @ 15:11 by NARCISA Che) Father No problems noted. Mother No problems noted. Social History Housing: House Alcohol intake: current Alcohol intake frequency: holidays/special occasions only Patient Tobacco Use Status: Former Tobacco user e-Cigarette/Vaping Use: Never Used Second Hand Smoke Exposure: Yes service: No Current occupational status: retired Cognitive needs: No Hearing needs: No Vision needs: Yes (reading glasses) Questionnaire Thrive Questionnaire Date Thrive assessed: 08/28/24 BRIAN-7 AMB Questionnaire BRIAN-7 Date BRIAN - 7 assessed: 08/28/24 Source: Developed by Drs. William Bach, Michelle Reeves, Christiano Pereira and colleagues, with an educational lucina from [employer]. Physical exam (Primary Care) Vital Signs: Last Vital Signs Temp 97.1 F 12/11/24 15:12 Pulse 67 12/11/24 15:12 BP 124/68 12/11/24 15:12 Pulse Ox 95 12/11/24 15:12 Oxygen Delivery Method Room Air 12/11/24 15:12 BMI result Body Mass Index 35.8 Tobacco/Smoking Status: Tobacco use Status Tobacco use date assessed 12/11/24 12/11/24 15:24 Patient Tobacco Use Status Former Tobacco user 12/11/24 15:09 e-Cigarette/Vaping Use Never Used 12/11/24 15:24 Thrive Assessment: Date of Thrive Assessment Date Thrive assessed 08/28/24 12/11/24 15:09 Coding Level of Care Code Est Pt Level 4 (94021) Complex EM visit Add On G2211 Diagnoses Neck pain M54.2 Assessment & Plan Assessment & Plan (1) Neck pain: Code(s): M54.2 - Cervicalgia Category: Medical Plan: Ultrasound of the thyroid results explained to patient. The thyroid is not contributing to her neck pain. Since Physical therapy her pain symptoms have subsided. Was referred to PT again by the orthopedic MD for evaluation of muscles around the neck. Plan History of Present Illness - The patient is an 84-year-old female presenting with evaluation of thyroid nodules and neck pain. - Thyroid nodules: Ultrasound showed small, non-significant nodules on the right lobe. The left lobe showed only thyroid tissue, with no nodules. Pain reported over the thyroid is not related to the thyroid condition. - Neck pain: Initially managed by physical therapy, with improvement noted. Pain recurred after discharge. X-ray confirmed tendinitis on the left side. The patient is to resume physical therapy. - Hypertension: Blood pressure readings have improved. - Carotid artery bruit: Mild bruit detected on the right carotid artery, not deemed significant. Social History Review of Systems - Endocrine: Denies thyroid-related symptoms. - Musculoskeletal: Reports neck pain, improved with physical therapy but recurred after discharge. - Cardiovascular: Reports improved blood pressure. Denies chest pain or palpitations. Physical Exam General: Cooperative and healthy appearing Nutritional Appearance: Well nourished Orientation/consciousness: Patient oriented x3 Limitations: No limitations Head: Normal to inspection General: Appearance normal, both eyes and all related structures Neck: Normal visual inspection Chest: Normal palpation of entire chest wall Respiratory: Normal respiratory effort Neurology: Patient oriented x3 Results - Imaging: Ultrasound of thyroid was unremarkable. Plan 1. Thyroid Nodules - Continue monitoring thyroid nodules with regular follow-ups. 2. Neck Pain Associated With Tendinitis - Resume physical therapy for neck pain management. 3. Hypertension - Continue monitoring blood pressure and adjust medications as needed. 4. Carotid Artery Bruit - Monitor carotid artery bruit with regular follow-ups. Discussion Notes During the visit, we discussed the findings of the thyroid ultrasound, which showed small, non-significant nodules on the right lobe. I reassured the patient that the neck pain is not related to the thyroid and is likely due to tendinitis, as confirmed by x-ray. We agreed on resuming physical therapy to manage the neck pain. The patient's blood pressure has improved, and we will continue to monitor it. A mild bruit was noted on the right carotid artery, which will also be monitored regularly. Patient Instructions - Continue with regular follow-ups for thyroid nodules. - Resume physical therapy for neck pain management. - Monitor blood pressure regularly and report any significant changes. - Follow up for carotid artery bruit monitoring.
[2024-12-11 15:12] VITALS: BP 124/68; PULSE 67; TEMP 36.2; O2SAT 95; BMI 35.8
--- OUTSIDE RECORDS SUMMARY | 2024-12-11 15:32 | XMS_ITS | Clinical Summary ---
Author Organization [facility] Address [address] [place] [phone] Phone Care Team Providers Care Vfx Artist Name Role Phone William Weber Primary Care Provider [phone] Allergies Active Allergy Reactions Criticality Noted Date [...] to Subscriber:Self Name:Gloria Raines Payer ID:[id number] ([facility]) Type:PPO Address: [address] [place] [id number] [employer] PPO Member Subscriber Plan / Payer (Ef fective 2010-Present) Name:Gloria Raines Relation to Subscriber:Self Name:Gloria Raines Payer ID:[id number] ([facility]) Type:PPO Address: [address] [place] [id number] [employer] PPO CIGNA PPO CIG[employer] PPO Care Teams Vfx Artist Relationship Specialty Start Date End Date William Weber DO [address] [place] [id number] PCP - General Internal Medicine 06/03/23 Additional Source Comments The information contained in this document represents components of the legal health record. It is not the complete legal health record.[facility]
== END 2024-12-11 16:04 | disposition home or self-care (01) ==
LOC: HO.HMCH 15:01
PROVIDERS: PCP Internal Medicine; Visit Provider Internal Medicine
DX: M54.2 Cervicalgia (principal)

== ENCOUNTER 2024-12-18 07:17 | Outpatient (AMB) | payer OTHER, SELFPAY ==
--- NOTE | 2024-12-18 07:33 | A.OFFVIS_ITS ---
Vital Signs 12/18/24 07:34 Height 5 ft Weight 186 lb 6 oz BMI 36.4 BP 128/70 Blood Pressure Location Rt brachial Position Sitting Pulse 57 Pulse Source Pulse Oximeter Pulse Oximetry (%) 97 Oxygen Delivery Method Room Air Intake Visit Reasons: INP-Tremor Intake Note: Tremor Shuttle Route Vehicle Operator Required: No Accompanied by: Self / Same As Patient Allergies aspirin (ASPIRIN) Allergy (Unknown, Verified 12/18/24 07:38) ANAPHYLAXIS, hives cefaclor Allergy (Unknown, Verified 12/18/24 07:38) anaphylaxis cephalexin Allergy (Unknown, Verified 12/18/24 07:38) anaphylaxis Cephalosporins (CEPHALOSPORINS) Allergy (Unknown, Verified 12/18/24 07:38) DIFFICULTY BREATHING erythromycin base (ERYTHROMYCIN BASE) Allergy (Unknown, Verified 12/18/24 07:38) ANAPHYLAXIS ibuprofen (From MOTRIN) Allergy (Unknown, Verified 12/18/24 07:38) HIVES Iodinated Contrast Media (IV DYE, IODINE CONTAINING) Allergy (Unknown, Verified 12/18/24 07:38) ANAPHYLAXIS ketoconazole (KETOCONAZOLE) Allergy (Unknown, Verified 12/18/24 07:38) ANAPHYLAXIS Penicillins (PENICILLINS) Allergy (Unknown, Verified 12/18/24 07:38) ANAPHYLAXIS ranitidine (Zantac) Allergy (Unknown, Verified 12/18/24 07:38) hives simvastatin (From ZOCOR) Allergy (Unknown, Verified 12/18/24 07:38) ANAPHYLAXIS Dye LONG-TERM Blue 1 Allergy (Unknown, Uncoded 12/11/24 15:12) Unknown Environmental Allergies Allergy (Unknown, Uncoded 12/11/24 15:12) Unknown From CEFOTAN Allergy (Unknown, Uncoded 12/11/24 15:12) ANAPHYLAXIS From ZANTAC Allergy (Unknown, Uncoded 12/11/24 15:12) ANAPHYLAXIS Insect bites ( Spiders and Bee Allergy (Unknown, Uncoded 12/11/24 15:12) Unknown Ketoconazole Allergy (Unknown, Uncoded 12/11/24 15:12) Unknown Zocor Allergy (Unknown, Uncoded 12/11/24 15:12) myalgias HPI Comments Details: 84y/o Right handed female comes for further management of tremors. she was diagnosed with essential tremors 30 years ago and has been stable on primidone 25mg bid and now on 50mg bid she wants to know is she needs to switch to a newer medications and if she has any ground host/hostess side effects with primidone . The tremors are mainly in her hands with action and posture and with medications she is able to do all her ADLS. she also reports on off numbness in her finger tips and hands . she has neck pain but denies any shooting pains.Denies weakness [facility] Medical History Numbness and tingling in both hands Essential and other specified forms of tremor Multiple thyroid nodules Thyroid nodule Osteopenia Vitamin D deficiency Class 2 obesity with body mass index (BMI) of 37.0 to 37.9 in adult Glaucoma History of diverticulitis Environmental allergies Tubular adenoma Lumbar spondylosis Tremor of right hand Pure hypercholesterolemia, unspecified Establishing care with new doctor, encounter for Hypertension Neck pain History of recent fall Injury of left shoulder History of mammogram (~07/18/24) Surgical History History of colonoscopy (~11/29/19) History of breast biopsy History of tonsillectomy Hx of cataract surgery Hx of wisdom tooth extraction History of partial hysterectomy Hx of arthroscopy of left knee Hx of appendectomy Family History Father No problems noted. Mother No problems noted. Social History Housing: House Alcohol intake: current Alcohol intake frequency: holidays/special occasions only Patient Tobacco Use Status: Former Tobacco user e-Cigarette/Vaping Use: Never Used Second Hand Smoke Exposure: Yes service: No Current occupational status: retired Cognitive needs: No Hearing needs: No Vision needs: Yes (reading glasses) Physical Exam Vital Signs: Last Vital Signs Pulse 57 12/18/24 07:34 BP 128/70 12/18/24 07:34 Pulse Ox 97 12/18/24 07:34 Oxygen Delivery Method Room Air 12/18/24 07:34 BMI result Body Mass Index 36.4 Const General: cooperative, healthy appearing, comfortable, no acute distress and well developed Nutritional Appearance: obese Orientation/consciousness: patient oriented x3 Eyes Pupils: Equal, round and reactive pupils present Neuro Other: Mild voice tremors Mild right UE postural and action tremors Mild cog wheel rigidity Right UE Mild tongue tremors Gait- antalgic gait General: patient oriented x3, moves all extremities and no focal motor deficits Cranial nerves: Yes Facial sensation intact/muscles of mastication intact, Yes Equal, round and reactive pupils present, Yes Bilaterally intact EOM present, Yes Nystagmus not present, Yes Normal facial strength present, Yes Midline tongue present and Yes Ability to bilaterally elevate shoulders present Cognition (Neuro): normal cognition Gait exam (Neuro): Antalgic gait present Motor exam (neuro): 5/5 motor strength present throughout and Pronator motor function not present Deep tendon reflexes (DTR's): Right triceps reflex intensity grade: 3+, Left triceps reflex intensity grade: 3+, Rt Biceps (C5, C6): 3+, Left biceps reflex intensity grade: 3+, Right brachioradialis reflex intensity grade: 3+, Left brachioradialis reflex intensity grade: 3+, Right patellar reflex intensity grade: 3+ and Left patellar reflex intensity grade: 3+ Coordination: [id number] test normal Assessment & Plan Assessment & Plan (1) Essential and other specified forms of tremor: Comment: Right UE cogwheel rigidity Code(s): G25.0 - Essential tremor; G25.2 - Other specified forms of tremor Category: Medical (2) Numbness and tingling in both hands: Comment: ? carpal tunnel / cervical spondylosis Code(s): R20.0 - Anesthesia of skin; R20.2 - Paresthesia of skin Category: Medical Plan Continue Primidone 50mg bid Suggested to use wrist splints If her sensory symptoms worsen , will consider EMG/NCS and C spine MRI Coding Level of Care Code New Pt Level 4 (46058) Diagnoses Essential and other specified forms of tremor G25.0; G25.2 Numbness and tingling in both hands R20.0; R20.2
[2024-12-18 07:34] VITALS: BP 128/70; PULSE 57; O2SAT 97; BMI 36.4
== END 2024-12-18 08:13 | disposition home or self-care (01) ==
LOC: HO.HSMS 07:18
PROVIDERS: PCP Internal Medicine; Visit Provider Psychiatry & Neurology Neurology
DX: G25.0 Essential tremor (principal); G25.2 Other specified forms of tremor; R20.0 Anesthesia of skin; R20.2 Paresthesia of skin
CPT/HCPCS: 99204

== ENCOUNTER 2024-12-31 14:20 | Outpatient (AMB) | payer OTHER, SELFPAY ==
[2024-12-31 14:21] VITALS: BP 102/70; PULSE 72; O2SAT 98; BMI 35.6
--- NOTE | 2024-12-31 14:21 | A.OFFVIS_ITS ---
Vital Signs 12/31/24 14:21 Height 5 ft Weight 182 lb 1.629 oz BMI 35.6 BP 102/70 Blood Pressure Location Lt brachial Position Sitting Pulse 72 Pulse Source Pulse Oximeter Pulse Oximetry (%) 98 Oxygen Delivery Method Room Air Intake Visit Reasons: Nontoxic multinodular goiter Intake Note: New patient present today for Nontoxic multinodular goiter office visit. Internal Control Manager Required: No Accompanied by: Self / Same As Patient Allergies aspirin (ASPIRIN) Allergy (Unknown, Verified 12/31/24 14:27) ANAPHYLAXIS, hives cefaclor Allergy (Unknown, Verified 12/31/24 14:27) anaphylaxis cephalexin Allergy (Unknown, Verified 12/31/24 14:27) anaphylaxis Cephalosporins (CEPHALOSPORINS) Allergy (Unknown, Verified 12/31/24 14:27) DIFFICULTY BREATHING erythromycin base (ERYTHROMYCIN BASE) Allergy (Unknown, Verified 12/31/24 14:27) ANAPHYLAXIS ibuprofen (From MOTRIN) Allergy (Unknown, Verified 12/31/24 14:27) HIVES Iodinated Contrast Media (IV DYE, IODINE CONTAINING) Allergy (Unknown, Verified 12/31/24 14:27) ANAPHYLAXIS ketoconazole (KETOCONAZOLE) Allergy (Unknown, Verified 12/31/24 14:27) ANAPHYLAXIS Penicillins (PENICILLINS) Allergy (Unknown, Verified 12/31/24 14:27) ANAPHYLAXIS ranitidine (Zantac) Allergy (Unknown, Verified 12/31/24 14:27) hives simvastatin (From ZOCOR) Allergy (Unknown, Verified 12/31/24 14:27) ANAPHYLAXIS Dye [facility] Blue 1 Allergy (Unknown, Uncoded 12/31/24 14:27) Unknown Environmental Allergies Allergy (Unknown, Uncoded 12/31/24 14:27) Unknown From CEFOTAN Allergy (Unknown, Uncoded 12/31/24 14:27) ANAPHYLAXIS From ZANTAC Allergy (Unknown, Uncoded 12/31/24 14:27) ANAPHYLAXIS Insect bites ( Spiders and Bee Allergy (Unknown, Uncoded 12/31/24 14:27) Unknown Ketoconazole Allergy (Unknown, Uncoded 12/31/24 14:27) Unknown Zocor Allergy (Unknown, Uncoded 12/31/24 14:27) myalgias HPI Comments Details: 84-year-old female coming in today for 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 She had a cervical spine CT done in October 2024 which identified thyroid nodules. That led to the ultrasound. Ultrasound thyroid 12/04/2024 I reviewed the images myself which showed a heterogenous gland with multiple spongiform nodules bilaterally that appear low risk. The largest once measured are the right superior 1 cm, a right midpole 0.8 cm and right lower pole 1.3 cm nodules. None of these meet criteria for follow up. Patient currently denies heat or cold intolerance, diarrhea or constipation, hair loss, palpitation, anxiety, weight changes, mood changes, low energy, changes in appearance of eyes or vision changes, tremors, increased diaphoresis or dry skin. ? Patient denies any difficulty swallowing, pain on swallowing or voice changes or difficulty breathing. some fullness when laying out. Patient denies any history of childhood neck radiation. Denies having ever used lithium, amiodarone or biotin supplements. Patient denies any family history of thyroid cancer. Mother and aunt total thyroidectomy for nodules. Physical exam General: sitting comfortably in no acute distress HEENT: normocephalic/atraumatic, Neck: supple, palpable 1 cm right-sided nodule Cardiac: normal heart sounds Pulm: normal breath sounds B/L, no added breath sounds Abd: not distended, no tenderness Extremities: no edema, no signs of myxedema Laboratory Tests 11/22/24 09:12 TSH 1.63 EXAMINATION: US THYROID 12/04/24 HISTORY: E04.1 - Nontoxic single thyroid nodule TECHNIQUE: Real-time grayscale ultrasound imaging was performed and images were reviewed. COMPARISON: Correlation is made with a CT of the cervical spine dated 11/01/2024. FINDINGS: SIZE: The right thyroid lobe measures 5.1 x 3.1 x 1.7 cm. The left thyroid lobe measures 5.5 x 2.9 x 1.7 cm. The isthmus measures 5 mm. FLOW: Flow to the gland is increased. ECHOGENICITY: The echotexture of the gland is heterogeneous. NODULES: Multiple spongiform nodules are seen on the right which are not concerning. On the left, the gland is diffusely heterogeneous, but no discrete nodules are identified. US/US thyroid IMPRESSION: No suspicious thyroid nodules are identified. [facility] Medical History Numbness and tingling in both hands Essential and other specified forms of tremor Multiple thyroid nodules Thyroid nodule Osteopenia Vitamin D deficiency Class 2 obesity with body mass index (BMI) of 37.0 to 37.9 in adult Glaucoma History of diverticulitis Environmental allergies Tubular adenoma Lumbar spondylosis Tremor of right hand Pure hypercholesterolemia, unspecified Establishing care with new doctor, encounter for Hypertension Neck pain History of recent fall Injury of left shoulder History of mammogram (~07/18/24) Surgical History History of colonoscopy (~11/29/19) History of breast biopsy History of tonsillectomy Hx of cataract surgery Hx of wisdom tooth extraction History of partial hysterectomy Hx of arthroscopy of left knee Hx of appendectomy Family History Father No problems noted. Mother No problems noted. Social History Housing: House Alcohol intake: current Alcohol intake frequency: holidays/special occasions only Patient Tobacco Use Status: Former Tobacco user e-Cigarette/Vaping Use: Never Used Second Hand Smoke Exposure: Yes service: No Current occupational status: retired Cognitive needs: No Hearing needs: No Vision needs: Yes (reading glasses) Assessment & Plan Assessment & Plan (1) Multiple thyroid nodules: Code(s): E04.2 - Nontoxic multinodular goiter Category: Medical Plan: 84-year-old female with no family history of thyroid cancer, with no personal history of head or neck radiation coming in today for initial evaluation of multiple thyroid nodules. She had a cervical spine CT done in October 2024 which identified thyroid nodules. That led to the ultrasound. Ultrasound thyroid 12/04/2024 I reviewed the images myself which showed a heterogenous gland with multiple spongiform nodules bilaterally that appear low risk. The largest once measured are the right superior 1 cm, a right midpole 0.8 cm and right lower pole 1.3 cm nodules. None of these meet criteria for follow up. Normal TSH from November 2024. She does not have any compressive symptoms. I explained that it is common to have thyroid nodules. About 95% of the time these nodules are benign. However if the nodule is > 1 cm in size or suspicious on ultrasound then a fine need aspiration biopsy is recommended. At this time in of her nodules meet criteria for FNA or follow up. If she has any clinical changes, such as difficulty swallowing, voice changes, PCP can consider repeat imaging of the thyroid and if anything is concerning she can be referred back to us. However at this time she does not need follow up with me. Plan See above Coding Level of Care Code New Pt Level 3 (15359) Diagnoses Multiple thyroid nodules E04.2
== END 2024-12-31 14:39 | disposition home or self-care (01) ==
LOC: HO.ENCR 14:21
PROVIDERS: PCP Internal Medicine; Visit Provider Student in an Organized Health Care Education/Training Program
DX: E04.2 Nontoxic multinodular goiter (principal)
CPT/HCPCS: 99203

== ENCOUNTER 2025-03-27 09:24 | Outpatient (AMB) | payer OTHER, SELFPAY ==
--- NOTE | 2025-03-27 09:50 | A.OFFPC_ITS ---
Vital Signs 03/27/25 09:52 Height 4 ft 11.84 in Weight 179 lb 2 oz BMI 35.2 BP 134/72 Blood Pressure Location Lt brachial Position Sitting Pulse 75 Pulse Source Pulse Oximeter Temp 97.1 F Temp Source Temporal Artery Scan Pulse Oximetry (%) 97 Oxygen Delivery Method Room Air Intake Visit Reasons: Follow up Intake Note: Patient is here to follow up on HTN. Telephone Directory Deliverer Required: No Charger: Not Required per policy Accompanied by: Self / Same As Patient Allergies aspirin (ASPIRIN) Allergy (Unknown, Verified 03/27/25 09:51) ANAPHYLAXIS, hives cefaclor Allergy (Unknown, Verified 03/27/25 09:51) anaphylaxis cephalexin Allergy (Unknown, Verified 03/27/25 09:51) anaphylaxis Cephalosporins (CEPHALOSPORINS) Allergy (Unknown, Verified 03/27/25 09:51) DIFFICULTY BREATHING erythromycin base (ERYTHROMYCIN BASE) Allergy (Unknown, Verified 03/27/25 09:51) ANAPHYLAXIS ibuprofen (From MOTRIN) Allergy (Unknown, Verified 03/27/25 09:51) HIVES Iodinated Contrast Media (IV DYE, IODINE CONTAINING) Allergy (Unknown, Verified 03/27/25 09:51) ANAPHYLAXIS ketoconazole (KETOCONAZOLE) Allergy (Unknown, Verified 03/27/25 09:51) ANAPHYLAXIS Penicillins (PENICILLINS) Allergy (Unknown, Verified 03/27/25 09:51) ANAPHYLAXIS ranitidine (Zantac) Allergy (Unknown, Verified 03/27/25 09:51) hives simvastatin (From ZOCOR) Allergy (Unknown, Verified 03/27/25 09:51) ANAPHYLAXIS Dye [facility] Blue 1 Allergy (Unknown, Uncoded 03/27/25 09:51) Unknown Environmental Allergies Allergy (Unknown, Uncoded 03/27/25 09:51) Unknown From CEFOTAN Allergy (Unknown, Uncoded 03/27/25 09:51) ANAPHYLAXIS From ZANTAC Allergy (Unknown, Uncoded 03/27/25 09:51) ANAPHYLAXIS Insect bites ( Spiders and Bee Allergy (Unknown, Uncoded 03/27/25 09:51) Unknown Ketoconazole Allergy (Unknown, Uncoded 03/27/25 09:51) Unknown Zocor Allergy (Unknown, Uncoded 03/27/25 09:51) myalgias Tobacco use date assessed: 03/27/25 Fall risk assessment: No Falls in past year Last assessed Fall Risk: 03/27/25 Dental Screening Dental Screen Date: 08/28/24 HPI HPI Comments History of Present Illness Details History of Present Illness - The patient is an 84 year old individu al presenting for a follow-up visit with general health concerns. - Constipation: The patient reports occa sional constipation and inquired about the use of stool softeners. - Neck Pain: Reports neck pain is not se joon and has improved with physical therapy. - Left Shoulder Tendinitis: The patient received physical therapy for tendinitis in the left shoulder, which is the side the patient usually falls on. - History of Falls: The patient reports no falls since June. - Osteoporosis: The patient takes alendr kristie once weekly and is compliant with instructions to take it with sufficient water while sitting up and to avoid lying down or eating immediately after. - Medication History: The patient's jenelle men includes vitamin D daily, Zetia for cholesterol, lisinopril, primidone twice daily for tremor, and eye drops. - Diagnostic History: A thyroid ultrasou nd was normal. - Screening: The patient had a bone dens ity scan in October of the current year and blood work in November, which was fine. - Immunizations: The patient is up to da te on flu, COVID, and RSV vaccinations. Social History - The patient lives three minutes away f rom the patient's sister and plans to visit for the holidays. Results - Labs: Blood work from November was fine. - Imaging: Thyroid ultrasound was normal . - Tests: Bone density scan performed in October of this year. [facility] Medical History Numbness and tingling in both hands Essential and other specified forms of tremor Multiple thyroid nodules Thyroid nodule Osteopenia Vitamin D deficiency Class 2 obesity with body mass index (BMI) of 37.0 to 37.9 in adult Glaucoma History of diverticulitis Environmental allergies Tubular adenoma Lumbar spondylosis Tremor of right hand Pure hypercholesterolemia, unspecified Establishing care with new doctor, encounter for Hypertension Neck pain History of recent fall Injury of left shoulder History of mammogram (~07/18/24) Surgical History History of colonoscopy (~11/29/19) History of breast biopsy History of tonsillectomy Hx of cataract surgery Hx of wisdom tooth extraction History of partial hysterectomy Hx of arthroscopy of left knee Hx of appendectomy Family History Father No problems noted. Mother No problems noted. Social History Housing: House Alcohol intake: current Alcohol intake frequency: holidays/special occasions only Patient Tobacco Use Status: Former Tobacco user e-Cigarette/Vaping Use: Never Used Second Hand Smoke Exposure: Yes service: No Current occupational status: retired Cognitive needs: No Hearing needs: No Vision needs: Yes (reading glasses) Questionnaire Thrive Questionnaire Date Thrive assessed: 08/28/24 BRIAN-7 AMB Questionnaire BRIAN-7 Date BRIAN - 7 assessed: 08/28/24 Source: Developed by Drs. William Bach, Michelle Reeves, Christiano Pereira and colleagues, with an educational lucina from [employer]. Review of Systems Narrative Review of Systems - Gastrointestinal: Reports occasional constipation. - Musculoskeletal: Reports neck pain is not bad at all. - Neurological: Acknowledges a tremor treated with medication. - Constitutional: Denies falls since June. Physical exam (Primary Care) Vital Signs: Last Vital Signs Temp 97.1 F 03/27/25 09:52 Pulse 75 03/27/25 09:52 BP 134/72 03/27/25 09:52 Pulse Ox 97 03/27/25 09:52 Oxygen Delivery Method Room Air 03/27/25 09:52 BMI result Body Mass Index 35.2 Tobacco/Smoking Status: Tobacco use Status Tobacco use date assessed 03/27/25 03/27/25 09:59 Patient Tobacco Use Status Former Tobacco user 03/27/25 09:59 e-Cigarette/Vaping Use Never Used 03/27/25 09:59 Thrive Assessment: Date of Thrive Assessment Date Thrive assessed 08/28/24 03/27/25 09:59 Narrative Physical Exam General: Cooperative and healthy appearing Nutritional Appearance: Well nourished Orientation/consciousness: Patient oriented x3 Limitations: No limitations Head: Normal to inspection General: Appearance normal, both eyes and all related structures Neck: Normal visual inspection Chest: Normal palpation of entire chest wall Respiratory: Normal respiratory effort Neurology: Patient oriented x3 Coding Level of Care Code Est Pt Level 4 (66060) Complex EM visit Add On G2211 Diagnoses Hypertension I10 Assessment & Plan Assessment & Plan (1) Hypertension: Code(s): I10 - Essential (primary) hypertension Category: Medical Plan Plan - Constipation: The use of an [id number] stool softener is approved. - Osteoporosis: Continue weekly alendronate. - Medication Management: A refill for alendronate will be sent to [facility]. - Health Maintenance: Orders for fasting blood work have been placed. - Screening: A follow-up bone density scan is recommended in two years. - Follow-up: The patient will return in six months for a follow-up appointment. Discussion Notes I addressed the patient's concern about constipation and approved the use of a stool softener. We reviewed the current medication list, and I will place a refill for alendronate. I explained that improvement from alendronate therapy is assessed via a bone density scan, and the next scan will be due in two years from the last one in October. I have placed orders for fasting blood work, which the patient will have done today along with tests ordered by Dr. Beckford. The patient's blood pressure was 140/60 mmHg after a period of rest. I recommended a follow-up appointment in six months. Patient Instructions - You may use a stool softener as needed for constipation. - Continue to take your alendronate once a week for osteoporosis. - Remember to drink plenty of water and remain sitting upright for at least 30 minutes after taking alendronate. - A refill for your alendronate has been sent to [facility]. - Please go for fasting blood work today. - Inform the lab staff that you have orders from both Dr. Ritchie and Dr. Beckford. - Your next bone density scan will be in two years. - Please schedule a follow-up appointment in six months. Orders: Orders Basic Metabolic Panel Today I10 - Essential (primary) hypertension Lipid Panel Today I10 - Essential (primary) hypertension Liver Panel Today I10 - Essential (primary) hypertension UA and rflx microscopic Today I10 - Essential (primary) hypertension Complete Blood Count no Diff Today I10 - Essential (primary) hypertension Thyroid Stimulating Hormone Today I10 - Essential (primary) hypertension Medications: New alendronate 70 mg PO QWEEK 14 tabs 0RF
[2025-03-27 09:52] VITALS: BP 134/72; PULSE 75; TEMP 36.2; O2SAT 97; BMI 35.2
--- OUTSIDE RECORDS SUMMARY | 2025-03-27 12:52 | XMS_ITS | Clinical Summary ---
Author Organization [facility] Address [address] [place] [id number] Phone Care Team Providers Care Pony Ride Attendant Name Role Phone William Weber Primary Care Provider [phone] Allergies Active Allergy Reactions Criticality Noted Date [...] VACCINE (1 - 1-dose 75+ series) 10/22/2015 INFLUENZA VACCINE (#1) 2024 COVID-19 VACCINE ( - 2024-2 6 season) 2025 HEPATITIS A VACCINES Aged Out No long er eligible based on patient's age to complete this topic HIB VACCINES Aged Out No longer eligi ble based on patient's age to complete this topic IPV VACCINES Aged Out No longer eligi ble based on patient's age to complete this topic MENINGOCOCCAL VACCINES (ACWY) Aged Out No longer eligible based on patient's age to complete this topic MENINGOCOCCAL VACCINES (B) Aged Out N o longer eligible based on patient's age to complete this topic Medical Devices Not on file Insurance [employer] PPO CIGNA PPO CIGNA PPO CIGNA PPO CIGNA PPO CIGNA PPO Care Teams Pony Ride Attendant Relationship Specialty Start Date End Date William Weber DO [address] [place] [id number] PCP - General Internal Medicine 06/03/23 Additional Source Comments The information contained in this document represents components of the legal health record. It is not the complete legal health record.[facility]
== END 2025-03-27 10:18 | disposition home or self-care (01) ==
LOC: HO.HMCH 09:25
PROVIDERS: PCP Internal Medicine; Visit Provider Internal Medicine
DX: I10 Essential (primary) hypertension (principal)